=== PATIENT | female | born 1985 | race Caucasian/White ===

== ENCOUNTER 2018-07-09 15:41 | Emergency (ER) | payer SELFPAY ==
[2018-07-09] MEDS ORDERED: NA CHLORIDE 0.9% 1,000 ML ONE (17:18)
[2018-07-09] MEDS ORDERED: ONDANSETRON 4 MG/2 ML VIAL ONE (17:18)
--- NOTE | 2018-07-09 17:48 | RAD REPORT ---
EXAM DESCRIPTION: US - Abdomen Exam Limited - 07/09/2018 5:28 pm CLINICAL HISTORY: Right upper quadrant abdominal pain Preliminary findings provided at the time of the study. COMPARISON: CT study May 24, 2014 FINDINGS: No gallstones, sludge or other abnormalities within the gallbladder lumen. There is no wal l thickening or pericholecystic fluid. No common duct stone or biliary tree dilatation identified. IMPRESSION: Normal gallbladder and biliary tree ultrasound.
[2018-07-09] MEDS ORDERED: KETOROLAC 30 MG/ML INJ ONE (17:50)
[2018-07-09 18:03] LABS: Albumin 3.7 g/dL (3.4-5.0); Bilirubin Direct 0.1 mg/dL (0-0.2); Bilirubin Total 0.3 mg/dL (0.2-1.0); Potassium 3.8 mmol/L (3.5-5.1); Protein, Total 7.9 g/dL (6.4-8.2)
[2018-07-09 18:18] LABS: Urine Blood TRACE (NEG); Urine Glucose NEGATIVE (NEG); Urine Protein TRACE (NEG); Urine Specific Gravity >1.030 (1.005-1.030); Urine pH 6.5 (5.0-7.0)
[2018-07-09 18:22] LABS: Absolute Lymphocytes (CBC) 1.4 K/uL (0.7-4.9); Absolute Monocytes 0.6 K/uL (0.1-1.3); Absolute Neutrophil 8.3 K/uL (1.8-8.0); Basophils % 0.4 % (0-1.3); Hematocrit 40.9 % (36.0-45.0); Lymphocytes % 13.3 % (15.3-44.8); MCH 31.9 pg (27.0-35.0); MCV 90.7 fL (80-100); MPV 9.5 fL (7.6-11.3); Monocytes % 5.5 % (3.3-12.3)
--- NOTE | 2018-07-09 20:09 | RAD REPORT ---
EXAM DESCRIPTION: CT - Abdomen Pelvis W Contrast - 07/09/2018 7:39 pm CLINICAL HISTORY: Abdominal pain. Right upper quadrant pain since last night COMPARISON: None. TECHNIQUE: Computed axial tomography of the abdomen and pelvis was obtained. 100 cc Isovue-300 is ad ministered intravenously. Oral contrast was given. All CT scans are performed using dose optimization technique as appropriate and may include automated exposure control or mA/KV adjustment according to patient size. FINDINGS: The liver, spleen, pancreas, adrenals and kidneys appear unremarkable. The appendix is normal caliber. There is no evidence of diverticulitis An adnexal mass is not seen . A Nuvaring is in place. IMPRESSION: Unremarkable exam
[2018-07-09] MEDS ORDERED: levoFLOXacin 750 MG TAB ONE (20:25)
[2018-07-09 21:00] LABS: Urine Bacteria <20 /HPF (<20); Urine RBC NONE SEEN /HPF (NONE SEEN)
[2018-07-09 21:01] LABS: Urine Culture Reflex Order REFLEXED
--- NOTE | 2018-07-09 21:10 | ER ---
Nurse's Notes [facility] Name: Ale Mir Age: 33 yrs Sex: Female : 1985 Arrival Date: 07/09/2018 Time: 15:44 Bed 25 Private MD: Diagnosis: Unspecified abdominal pain Presentation: 07/09 15:46 Presenting complaint: Patient states: i am having right upper quadrant stomach pain tw2 since last night, denies N/v/D. Transition of care: patient was not received from another setting of care. Onset of symptoms was July 09, 2018. Risk Assessment: Do you want to hurt yourself or someone else? Patient reports no desire to harm self or others. Initial Sepsis Screen: Does the patient meet any 2 criteria? No. Patient's initial sepsis screen is negative. Does the patient have a suspected source of infection? No. Patient's initial sepsis screen is negative. Care prior to arrival: None. 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 - Social history:: Smoking status: Patient/guardian denies using tobacco. - Ebola Screening: : Patient denies travel to an Ebola-affected area in the 21 days before illness onset. Screenin:55 Abuse screen: Denies threats or abuse. Denies injuries from another. Nutritional aj1 screening: No deficits noted. Tuberculosis screening: No symptoms or risk factors identified. 21:30 Fall Risk None identified. aj1 Assessment: 16:51 General: Appears in no apparent distress. comfortable, Behavior is calm, cooperative, aj1 appropriate for age. Pain: Complains of pain in right upper quadrant and right lower quadrant Pain currently is 8 out of 10 on a pain scale. Neuro: Level of Consciousness is awake, alert, obeys commands. Cardiovascular: Patient's skin is warm and dry. Respiratory: Airway is patent Respiratory effort is even, unlabored, Respiratory pattern is regular, symmetrical. GI: Abdomen is flat, non-distended, Bowel sounds present X 4 quads. Abd is soft X 4 quads Abdomen is tender to palpation in right upper quadrant and right lower quadrant Reports nausea, Patient currently denies diarrhea, vomiting. : No signs and/or symptoms were reported regarding the genitourinary system. EENT: No signs and/or symptoms were reported regarding the EENT system. Derm: No signs and/or symptoms reported regarding the dermatologic system. Skin is pink, warm \T\ dry. normal. Musculoskeletal: No signs and/or symptoms reported regarding the musculoskeletal system. Circulation, motion, and sensation intact. 17:37 Reassessment: Patient appears in no apparent distress at this time. No changes from aj1 previously documented assessment. Patient and/or family updated on plan of care and expected duration. Pain level reassessed. Patient is alert, oriented x 3, equal unlabored respirations, skin warm/dry/pink. Patient states that the pain is making her nauseated. Patient vomited when she attempted to drink contrast because of the pain. Notified MELITON Myles. 17:51 Reassessment: Notified CT that patient has finished her contrast. aj1 18:40 Reassessment: Patient appears in no apparent distress at this time. No changes from aj1 previously documented assessment. Patient and/or family updated on plan of care and expected duration. Pain level reassessed. Patient is alert, oriented x 3, equal unlabored respirations, skin warm/dry/pink. 19:40 Reassessment: Patient appears in no apparent distress at this time. No changes from aj1 previously documented assessment. Patient and/or family updated on plan of care and expected duration. Pain level reassessed. Patient is alert, oriented x 3, equal unlabored respirations, skin warm/dry/pink. 20:31 Reassessment: Patient appears in no apparent distress at this time. No changes from aj1 previously documented assessment. Patient and/or family updated on plan of care and expected duration. Pain level reassessed. Patient is alert, oriented x 3, equal unlabored respirations, skin warm/dry/pink. 21:28 Reassessment: Patient appears in no apparent distress at this time. No changes from aj1 previously documented assessment. Patient and/or family updated on plan of care and expected duration. Pain level reassessed. Patient is alert, oriented x 3, equal unlabored respirations, skin warm/dry/pink. Vital Signs: 15:47 BP 144 / 91; Pulse 89; Resp 17; Temp 97.5(O); Pulse Ox 100% on R/A; Pain 8/10; tw2 16:51 BP 134 / 89; Pulse 79; Resp 16; Pulse Ox 100% on R/A; aj1 17:40 BP 127 / 88; Pulse 74; Resp 18; Pulse Ox 100% ; aj1 18:45 BP 125 / 78; Pulse 75; Resp 18; Pulse Ox 100% ; aj1 19:45 BP 131 / 83; Pulse 77; Resp 18; Pulse Ox 100% ; aj1 20:33 BP 121 / 81; Pulse 18; Resp 16; Pulse Ox 100% on R/A; aj1 21:29 BP 116 / 72; Pulse 75; Resp 18; Pulse Ox 99% on R/A; aj1 ED Course: 15:44 Patient arrived in ED. sb2 15:46 Triage completed. tw2 15:47 Arm band placed on. tw2 16:41 Nadeem Valencia PA is PHCP. cp 16:42 Bryn Hunter MD is Attending Physician. cp 16:44 Catrina Briceño RN is Primary Nurse. aj1 16:55 Patient has correct armband on for positive identification. Bed in low position. Call aj1 light in reach. Side rails up X 1. 16:55 No provider procedures requiring assistance completed. aj1 17:37 Initial lab(s) drawn, by me, sent to lab. Inserted saline lock: 20 gauge in left aj1 forearm, using aseptic technique. Blood collected. 19:38 Patient moved to [place] via wheelchair. nj 19:38 CT completed. Patient tolerated procedure well. Patient moved back from [place]. nj 21:09 Adam Lind MD is Referral Physician. cp 21:30 IV discontinued, intact, bleeding controlled, No redness/swelling at site. Pressure aj1 dressing applied. Administered Medications: 17:36 Drug: NS 0.9% 1000 ml Route: IV; Rate: 1 bolus; Site: left forearm; aj1 18:30 Follow up: IV Status: Completed infusion; IV Intake: 1000ml aj1 17:36 Drug: Zofran 4 mg Route: IVP; Site: left forearm; aj1 18:00 Follow up: Response: No adverse reaction aj1 17:43 Drug: TORadol 30 mg Route: IVP; Site: left antecubital; aj1 18:00 Follow up: Response: No adverse reaction aj1 20:30 Drug: LevaQUIN 750 mg Route: PO; aj1 21:28 Follow up: Response: No adverse reaction aj1 21:27 Drug: GI Cocktail without - (Maalox Suspension 30 ml, Lidocaine Liquid 2 % 15 aj1 ml) Route: PO; 21:28 Follow up: Response: No adverse reaction aj1 Intake: 18:30 IV: 1000ml; Total: 1000ml. aj1 Outcome: 21:10 Discharge ordered by . elysia 21:30 Discharged to home ambulatory. aj1 21:30 Condition: good 21:30 Discharge instructions given to patient, Instructed on discharge instructions, follow up and referral plans. medication usage, Demonstrated understanding of instructions, follow-up care, medications, Prescriptions given X 3. 21:31 Patient left the ED. aj1 Signatures: Catrina Briceño, RN RN aj1 Nadeem Valencia PA PA cp Wise, Tara, RN RN tw2 Octavio Weinstein Sheri sb2
--- NOTE | 2018-07-09 21:11 | EDPHYS ---
Physician Documentation [facility] Name: Ale Mir Age: 33 yrs Sex: Female : 1985 Arrival Date: 07/09/2018 Time: 15:44 Bed 25 Private MD: ED Physician Bryn Hunter HPI: 07/09 17:05 This 33 yrs old Female presents to ER via Ambulatory with complaints of cp Abdominal Pain. 17:05 The patient presents with abdominal pain in the right upper quadrant, right lower cp quadrant. Onset: The symptoms/episode began/occurred this morning, at 01:00. The symptoms radiate to right back. Associated signs and symptoms: Pertinent positives: nausea, cough, Pertinent negatives: constipation, diarrhea, dysuria, fever, vomiting. 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 - Social history:: Smoking status: Patient/guardian denies using tobacco. - Ebola Screening: : Patient denies travel to an Ebola-affected area in the 21 days before illness onset. ROS: 17:10 Constitutional: Negative for body aches, chills, fever, poor PO intake. cp 17:10 Eyes: Negative for injury, pain, redness, and discharge. cp 17:10 ENT: Negative for drainage from ear(s), ear pain, sore throat, difficulty swallowing, difficulty handling secretions. 17:10 Cardiovascular: Negative for chest pain, palpitations. 17:10 Respiratory: Negative for cough, shortness of breath, wheezing. 17:10 Abdomen/GI: Positive for abdominal pain, nausea, of the right upper quadrant, Negative for vomiting, diarrhea, constipation, black/tarry stool, rectal bleeding. 17:10 Back: Positive for radiated pain, of the right mid back. 17:10 : Negative for urinary symptoms. 17:10 Skin: Negative for cellulitis, rash. 17:10 All other systems are negative. Exam: 17:15 Constitutional: The patient appears in no acute distress, alert, awake, non-toxic, well cp developed, well nourished. 17:15 Head/Face: Normocephalic, atraumatic. Eyes: Pupils equal round and reactive to light, cp extra-ocular motions intact. Lids and lashes normal. Conjunctiva and sclera are non-icteric and not injected. Cornea within normal limits. Periorbital areas with no swelling, redness, or edema. ENT: Nares patent. No nasal discharge, no septal abnormalities noted. Tympanic membranes are normal and external auditory canals are clear. Oropharynx with no redness, swelling, or masses, exudates, or evidence of obstruction, uvula midline. Mucous membranes moist. Chest/axilla: Normal chest wall appearance and motion. Nontender with no deformity. No lesions are appreciated. 17:15 Cardiovascular: Rate: normal, Rhythm: regular, Edema: is not appreciated, JVD: is not appreciated. 17:15 Respiratory: the patient does not display signs of respiratory distress, Respirations: normal, no use of accessory muscles, no retractions, no splinting, no tachypnea, labored breathing, is not present, Breath sounds: are clear throughout, no decreased breath sounds, no stridor, no wheezing. 17:15 Abdomen/GI: Inspection: abdomen appears normal, Bowel sounds: active, all quadrants, Palpation: soft, in all quadrants, moderate abdominal tenderness, in the right upper quadrant and right lower quadrant, rebound tenderness, is not appreciated, involuntary guarding, is not appreciated. 17:15 Back: pain, that is moderate, of the right mid back, ROM is normal. 17:15 Skin: cellulitis, is not appreciated, no rash present. Vital Signs: 15:47 BP 144 / 91; Pulse 89; Resp 17; Temp 97.5(O); Pulse Ox 100% on R/A; Pain 8/10; tw2 16:51 BP 134 / 89; Pulse 79; Resp 16; Pulse Ox 100% on R/A; aj1 17:40 BP 127 / 88; Pulse 74; Resp 18; Pulse Ox 100% ; aj1 18:45 BP 125 / 78; Pulse 75; Resp 18; Pulse Ox 100% ; aj1 19:45 BP 131 / 83; Pulse 77; Resp 18; Pulse Ox 100% ; aj1 20:33 BP 121 / 81; Pulse 18; Resp 16; Pulse Ox 100% on R/A; aj1 21:29 BP 116 / 72; Pulse 75; Resp 18; Pulse Ox 99% on R/A; aj1 MDM: 16:42 Patient medically screened. cp 17:30 Differential diagnosis: appendicitis, cholecystitis, Cholelithiasis, gastritis, cp pancreatitis, Pyelonephritis, Ureterolithiasis, urinary tract infection. 21:09 Data reviewed: vital signs, nurses notes, lab test result(s), radiologic studies, CT cp scan, and as a result, I will discharge patient. 21:09 Counseling: I had a detailed discussion with the patient and/or guardian regarding: the cp historical points, exam findings, and any diagnostic results supporting the discharge/admit diagnosis, lab results, radiology results, to return to the emergency department if symptoms worsen or persist or if there are any questions or concerns that arise at home. Response to treatment: the patient's symptoms have markedly improved after treatment. Special discussion: Based on the patient's Hx, exam, and Dx evaluation, there is no indication for emergent surgery or inpatient Tx. It is understood by the patient/guardian that if the Sx's persist or worsen they need to return immediately for re-evaluation. 07/09 16:56 Order name: Basic Metabolic Panel 07/09 16:56 Order name: CBC with Diff 07/09 16:56 Order name: Creatinine for Radiology 07/09 16:56 Order name: Hepatic Function 07/09 16:56 Order name: Lipase 07/09 17:45 Order name: Urine Dipstick--Ancillary (enter results) 07/09 17:45 Order name: Urine --Ancillary (enter results) 07/09 18:04 Order name: Basic Metabolic Panel; Complete Time: 19:56 EDMS 07/09 18:04 Order name: Liver (Hepatic) Function; Complete Time: 19:56 EDMS 07/09 18:04 Order name: Lipase; Complete Time: 19:56 EDMS 07/09 18:07 Order name: Creatinine (Radiology Only); Complete Time: 19:56 EDMS 07/09 18:19 Order name: Urine --Ancillary; Complete Time: 19:56 EDMS 07/09 18:19 Order name: Urine Dipstick-Ancillary; Complete Time: 19:56 EDMS 07/09 20:37 Interpretation: Normal except: UBLD TRACE. 07/09 18:36 Order name: CBC with Automated Diff; Complete Time: 19:56 EDMS 07/09 16:56 Order name: IV Saline Lock; Complete Time: 17:36 07/09 16:56 Order name: Labs collected and sent; Complete Time: 17:36 07/09 16:56 Order name: Urine Dipstick-Ancillary (obtain specimen); Complete Time: 17:22 07/09 16:56 Order name: Urine Test (obtain specimen); Complete Time: 17:22 07/09 17:00 Order name: CT Abd/Pelvis - W/Contrast: give oral contrast 07/09 17:06 Order name: US Abdomen Limited: RUQ/epigastric pain 07/09 17:06 Order name: NPO; Complete Time: 17:12 07/09 17:49 Order name: US; Complete Time: 17:59 EDMS 07/09 17:59 Interpretation: Report reviewed. 07/09 20:10 Order name: CT; Complete Time: 20:33 EDMS 07/09 20:34 Interpretation: Report reviewed. 07/09 20:41 Order name: Urine Microscopic Only 07/09 21:02 Order name: Urine Microscopic Only; Complete Time: 21:06 EDMS Administered Medications: 17:36 Drug: NS 0.9% 1000 ml Route: IV; Rate: 1 bolus; Site: left forearm; aj1 18:30 Follow up: IV Status: Completed infusion; IV Intake: 1000ml aj1 17:36 Drug: Zofran 4 mg Route: IVP; Site: left forearm; aj1 18:00 Follow up: Response: No adverse reaction aj1 17:43 Drug: TORadol 30 mg Route: IVP; Site: left antecubital; aj1 18:00 Follow up: Response: No adverse reaction aj1 20:30 Drug: LevaQUIN 750 mg Route: PO; aj1 21:28 Follow up: Response: No adverse reaction aj1 21:27 Drug: GI Cocktail without - (Maalox Suspension 30 ml, Lidocaine Liquid 2 % 15 aj1 ml) Route: PO; 21:28 Follow up: Response: No adverse reaction aj1 Disposition: 07/10 07:45 Co-signature as Attending Physician, Bryn Hunter MD. rn Disposition: 07/09/18 21:10 Discharged to Home. Impression: Unspecified abdominal pain. - Condition is Stable. - Discharge Instructions: Abdominal Pain, Adult. - Prescriptions for Bentyl 20 mg Oral Tablet - take 2 tablet by ORAL route every 6 hours As needed; 40 tablet. Protonix 40 mg Oral Tablet - take 1 tablet by ORAL route once daily; 30 tablet. Zofran 4 mg Oral Tablet - take 1 tablet by ORAL route every 12 hours As needed; 20 tablet. - Medication Reconciliation Form, Thank You Letter, Antibiotic Education, Prescription Opioid Use form. - Follow up: Adam Lind MD; When: 2 - 3 days; Reason: Recheck today's complaints. - Problem is new. - Symptoms have improved. Signatures: Dispatcher [employer] EDMS Catrina Briceño RN RN aj1 Bryn Hunter MD MD rn Page, Corey, PA PA cp Wise, Tara RN RN tw2 Corrections: (The following items were deleted from the chart) 07/09 21:31 21:10 07/09/2018 21:10 Discharged to Home. Impression: Unspecified abdominal pain. aj1 Condition is Stable. Forms are Medication Reconciliation Form, Thank You Letter, Antibiotic Education, Prescription Opioid Use. Follow up: Adam Lind; When: 2 - 3 days; Reason: Recheck today's complaints. Problem is new. Symptoms have improved. cp
[2018-07-09] MEDS ORDERED: LIDOCAINE VISCOUS 2% SOLN 15 ML UDC ONE (21:21)
[2018-07-09] MEDS ORDERED: MAGNE/ALUM HYDROXD 30 ML UCUP ONE (21:21)
[2018-07-09 22:08] VITALS: TEMP 97.5
[2018-07-09 22:17] VITALS: BP 116/72; O2SAT 99
== END 2018-07-09 21:31 | disposition home or self-care (01) ==
LOC: ER 15:41
DX: R10.10 Upper abdominal pain, unspecified (principal)
CPT/HCPCS: 36415; 74177; 76705; 80048; 80076; 81003; 81015; 81025; 83690; 85025; 87086; 87088; J2405; J7030; Q9967

== ENCOUNTER 2018-07-10 04:05 | Emergency (ER) | payer SELFPAY ==
[2018-07-10] MEDS ORDERED: KETOROLAC 30 MG/ML INJ ONE (05:17)
--- NOTE | 2018-07-10 06:05 | ER ---
Nurse's Notes [facility] Name: Ale Mir Age: 33 yrs Sex: Female : 1985 Arrival Date: 07/10/2018 Time: 04:06 Bed 13 Private MD: Diagnosis: Abdominal and pelvic pain Presentation: 07/10 04:27 Presenting complaint: Patient states: I was here earlier in the afternoon for abdominal jb4 pain, I had a CT done and was sent home. Sat at home in excruciating pain, so I came back because my abdominal pain got worse. Transition of care: patient was not received from another setting of care. Onset of symptoms was July 09, 2018. Risk Assessment: Do you want to hurt yourself or someone else? Patient reports no desire to harm self or others. Initial Sepsis Screen: Does the patient meet any 2 criteria? No. Patient's initial sepsis screen is negative. Does the patient have a suspected source of infection? No. Patient's initial sepsis screen is negative. Care prior to arrival: None. 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 - Social history:: Smoking status: Patient/guardian denies using tobacco, Patient uses alcohol, occasionally. - Ebola Screening: : No symptoms or risks identified at this time. Screenin:45 Abuse screen: Denies threats or abuse. Nutritional screening: No deficits noted. jb4 Tuberculosis screening: No symptoms or risk factors identified. Fall Risk None identified. Assessment: 04:45 General: Appears in no apparent distress. comfortable, Behavior is calm, cooperative, jb4 appropriate for age. Pain: Complains of pain in abdomen Pain does not radiate. Pain currently is 5 out of 10 on a pain scale. Neuro: Level of Consciousness is awake, alert, obeys commands, Oriented to person, place, time, situation. Cardiovascular: Patient's skin is warm and dry. Respiratory: Airway is patent Respiratory effort is even, unlabored, Respiratory pattern is regular, symmetrical. GI: Abdomen is flat, non-distended, Bowel sounds present X 4 quads. Abd is soft X 4 quads Abd is non tender in left upper quadrant, right lower quadrant and left lower quadrant Abdomen is tender to palpation in right upper quadrant Reports upper abdominal pain. : No signs and/or symptoms were reported regarding the genitourinary system. EENT: No signs and/or symptoms were reported regarding the EENT system. Derm: Skin is intact, Skin is pink, warm \T\ dry. Musculoskeletal: Circulation, motion, and sensation intact. 05:40 Reassessment: Patient appears in no apparent distress at this time. Patient and/or jb4 family updated on plan of care and expected duration. Pain level reassessed. Patient is alert, oriented x 3, equal unlabored respirations, skin warm/dry/pink. Patient states feeling better. Vital Signs: 04:31 BP 129 / 74; Pulse 80; Resp 16; Temp 99.0(O); Pulse Ox 99% on R/A; Weight 79.38 kg (R); jb4 Height 5 ft. 8 in. (172.72 cm) (R); Pain 5/10; 05:30 BP 124 / 79; Pulse 87; Resp 16; Pulse Ox 97% on R/A; jb4 04:31 Body Mass Index 26.61 (79.38 kg, 172.72 cm) jb4 ED Course: 04:06 Patient arrived in ED. es 04:14 Michael Fajardo MD is Attending Physician. gs 04:27 Juice Maher RN is Primary Nurse. jb4 04:29 Triage completed. jb4 04:31 Arm band placed on left wrist. jb4 04:31 Patient has correct armband on for positive identification. Bed in low position. Call jb4 light in reach. Side rails up X 1. Pulse ox on. NIBP on. 06:04 Alexa Olivera MD is Referral Physician. gs 06:24 No provider procedures requiring assistance completed. Patient did not have IV access jb4 during this emergency room visit. Administered Medications: 05:18 Drug: TORadol 30 mg Route: IM; Site: right gluteus; jb4 05:39 Follow up: Response: No adverse reaction; Pain is decreased jb4 Outcome: 06:04 Discharge ordered by . jagdish 06:24 Discharged to home ambulatory. jb4 06:24 Condition: stable 06:24 Discharge instructions given to patient, Instructed on discharge instructions, follow up and referral plans. medication usage, Demonstrated understanding of instructions, follow-up care, medications, Prescriptions given X 1. 06:25 Patient left the ED. jb4 Signatures: Divina Brunner James, RN RN jb4 Michael Fajardo MD MD gs Corrections: (The following items were deleted from the chart) 05:40 04:45 GI: Abdomen is flat, non-distended, Reports upper abdominal pain, jb4 jb4
--- NOTE | 2018-07-10 06:05 | EDPHYS ---
Physician Documentation [facility] Name: Ale Mir Age: 33 yrs Sex: Female : 1985 Arrival Date: 07/10/2018 Time: 04:06 Bed 13 Private MD: ED Physician Michael Fajardo HPI: 07/10 06:09 This 33 yrs old Female presents to ER via Ambulatory with complaints of RT gs UPPER PAIN. 06:09 The patient presents with abdominal pain. Onset: The symptoms/episode began/occurred gs yesterday. Associated signs and symptoms: Pertinent negatives: blood in stools, constipation, fever, vomiting. The symptoms are described as crampy, intermittent. Modifying factors: The symptoms are alleviated by nothing, the symptoms are aggravated by nothing. Severity of pain: At its worst the pain was moderate in the emergency department the pain has resolved. The patient has experienced similar episodes in the past, several times. The patient has been recently seen at the [facility] Emergency Department, yesterday, for similar complaints. 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 - Social history:: Smoking status: Patient/guardian denies using tobacco, Patient uses alcohol, occasionally. - Ebola Screening: : No symptoms or risks identified at this time. ROS: 06:09 All other systems are negative. gs Exam: 06:09 Head/Face: Normocephalic, atraumatic. Eyes: Pupils equal round and reactive to light, gs extra-ocular motions intact. Lids and lashes normal. Conjunctiva and sclera are non-icteric and not injected. Cornea within normal limits. Periorbital areas with no swelling, redness, or edema. ENT: Nares patent. No nasal discharge, no septal abnormalities noted. Tympanic membranes are normal and external auditory canals are clear. Oropharynx with no redness, swelling, or masses, exudates, or evidence of obstruction, uvula midline. Mucous membranes moist. Neck: Trachea midline, no thyromegaly or masses palpated, and no cervical lymphadenopathy. Supple, full range of motion without nuchal rigidity, or vertebral point tenderness. No Meningismus. Chest/axilla: Normal chest wall appearance and motion. Nontender with no deformity. No lesions are appreciated. Cardiovascular: Regular rate and rhythm with a normal S1 and S2. No gallops, murmurs, or rubs. Normal PMI, no JVD. No pulse deficits. Respiratory: Lungs have equal breath sounds bilaterally, clear to auscultation and percussion. No rales, rhonchi or wheezes noted. No increased work of breathing, no retractions or nasal flaring. Abdomen/GI: Soft, non-tender, with normal bowel sounds. No distension or tympany. No guarding or rebound. No evidence of tenderness throughout. Back: No spinal tenderness. No costovertebral tenderness. Full range of motion. Skin: Warm, dry with normal turgor. Normal color with no rashes, no lesions, and no evidence of cellulitis. MS/ Extremity: Pulses equal, no cyanosis. Neurovascular intact. Full, normal range of motion. Neuro: Awake and alert, GCS 15, oriented to person, place, time, and situation. Cranial nerves II-XII grossly intact. Motor strength 5/5 in all extremities. Sensory grossly intact. Cerebellar exam normal. Normal gait. 06:09 Constitutional: The patient appears alert, awake. Vital Signs: 04:31 BP 129 / 74; Pulse 80; Resp 16; Temp 99.0(O); Pulse Ox 99% on R/A; Weight 79.38 kg (R); jb4 Height 5 ft. 8 in. (172.72 cm) (R); Pain 5/10; 05:30 BP 124 / 79; Pulse 87; Resp 16; Pulse Ox 97% on R/A; jb4 04:31 Body Mass Index 26.61 (79.38 kg, 172.72 cm) jb4 MDM: 04:32 Patient medically screened. 06:09 Differential diagnosis: Endometriosis, non-specific abd pain. Data reviewed: vital gs signs, nurses notes. Response to treatment: the patient's symptoms have markedly improved after treatment, the patient's symptoms have resolved after treatment, and as a result, I will discharge patient. Physician consultation: Alexa Olivera MD and will see patient in ED. Administered Medications: 05:18 Drug: TORadol 30 mg Route: IM; Site: right gluteus; jb4 05:39 Follow up: Response: No adverse reaction; Pain is decreased jb4 Disposition: 07/10/18 06:04 Discharged to Home. Impression: Abdominal and pelvic pain. - Condition is Stable. - Discharge Instructions: Endometriosis, Abdominal Pain, Adult, [id number]. - Prescriptions for Tramadol 50 mg Oral Tablet - take 1 tablet by ORAL route every 8 hours as needed; 10 tablet. - Medication Reconciliation Form, Thank You Letter, Antibiotic Education, Prescription Opioid Use form. - Follow up: Alexa Olivera MD; When: 2 - 3 days; Reason: Re-evaluation by your physician. Signatures: Juice Maher RN RN jb4 Michael Fajardo MD MD gs Corrections: (The following items were deleted from the chart) 06:25 06:04 07/10/2018 06:04 Discharged to Home. Impression: Abdominal and pelvic pain. jb4 Condition is Stable. Forms are Medication Reconciliation Form, Thank You Letter, Antibiotic Education, Prescription Opioid Use. Follow up: Alexa Olivera; When: 2 - 3 days; Reason: Re-evaluation by your physician. gs
[2018-07-10 06:55] VITALS: TEMP 99
[2018-07-10 06:56] VITALS: BP 124/79; O2SAT 97
== END 2018-07-10 06:25 | disposition home or self-care (01) ==
LOC: ER 04:05
DX: R10.2 Pelvic and perineal pain (principal)
CPT/HCPCS: 96372; 99283

== ENCOUNTER 2019-07-14 08:31 | Emergency (ER) | payer SELFPAY ==
[2019-07-14] MEDS ORDERED: FAMOTIDINE 20 MG TAB ONE (08:57)
[2019-07-14] MEDS ORDERED: predniSONE 20 MG TAB ONE (08:57)
--- NOTE | 2019-07-14 09:29 | ER ---
Nurse's Notes [facility] Name: Ale Mir Age: 34 yrs Sex: Female : 1985 Arrival Date: 07/14/2019 Time: 08:33 Bed 5 Private MD: Diagnosis: Allergic contact dermatitis Presentation: 07/14 08:47 Presenting complaint: Patient states: itchy rash started a few days ago and today sv started with a sore throat. Transition of care: patient was not received from another setting of care. Onset of symptoms was July 2019. Risk Assessment: Do you want to hurt yourself or someone else? Patient reports no desire to harm self or others. Initial Sepsis Screen: Does the patient meet any 2 criteria? No. Patient's initial sepsis screen is negative. Does the patient have a suspected source of infection? No. Patient's initial sepsis screen is negative. Care prior to arrival: Medication(s) given: benadryl. 08:47 Method Of Arrival: Ambulatory sv 08:47 Acuity: BHUPENDRA 4 sv Triage Assessment: 08:50 General: Appears in no apparent distress. uncomfortable, well groomed, well developed, sv Behavior is calm, cooperative, appropriate for age. Pain: Denies pain. Neuro: Level of Consciousness is awake, alert, obeys commands, Oriented to person, place, time, situation, Moves all extremities. Full function Gait is steady, Speech is normal. Respiratory: Respiratory effort is even, unlabored, Respiratory pattern is regular, symmetrical. Derm: Skin is pink, warm \T\ dry. Rash noted that is itchy, red, on back, abdomen, right arm and left arm. Historical: - Allergies: 08:54 No Known Allergies; sv - PMHx: 08:54 Kidney stones; sv - PSHx: 08:54 ; Lithotripsy; sv - Immunization history:: Adult Immunizations up to date. - Ebola Screening: : No symptoms or risks identified at this time. - Social history:: Smoking status: Patient/guardian denies using tobacco. Screenin:55 Abuse screen: Denies threats or abuse. Denies injuries from another. Nutritional sv screening: No deficits noted. Tuberculosis screening: No symptoms or risk factors identified. Fall Risk None identified. Assessment: 09:34 Reassessment: Patient appears in no apparent distress at this time. No changes from sv previously documented assessment. Patient and/or family updated on plan of care and expected duration. Pain level reassessed. Patient is alert, oriented x 3, equal unlabored respirations, skin warm/dry/pink. Vital Signs: 08:54 BP 136 / 77; Pulse 92; Resp 16; Temp 97.3; Pulse Ox 100% ; Weight 88.45 kg; Height 5 sv ft. 8 in. (172.72 cm); Pain 0/10; 08:54 Body Mass Index 29.65 (88.45 kg, 172.72 cm) sv ED Course: 08:33 Patient arrived in ED. as 08:37 Bernie Mccarthy FNP-C [facility]. kb 08:37 Bryn Hunter MD is Attending Physician. kb 08:46 Margarita Marshall, RN is Primary Nurse. sv 08:54 Triage completed. sv 08:54 Arm band placed on. sv 08:55 Patient has correct armband on for positive identification. Bed in low position. Call sv light in reach. Door closed. Head of bed elevated. 09:29 Throat Culture Sent. sv 09:34 No provider procedures requiring assistance completed. Patient did not have IV access sv during this emergency room visit. Administered Medications: 09:01 Drug: Pepcid 20 mg Route: PO; sv 09:29 Follow up: Response: No adverse reaction sv 09:01 Drug: predniSONE 40 mg Route: PO; sv 09:29 Follow up: Response: No adverse reaction sv Outcome: 09:28 Discharge ordered by MD. kb 09:34 Discharged to home ambulatory. sv 09:34 Condition: stable 09:34 Discharge instructions given to patient, Instructed on discharge instructions, follow up and referral plans. medication usage, Demonstrated understanding of instructions, follow-up care, medications, Prescriptions given X 2. 09:34 Patient left the ED. sv Signatures: Bernie Mccarthy FNP-C FNP-Margarita Valles, KRISTIN RN Perla Swenson as Corrections: (The following items were deleted from the chart) 08:57 08:54 BP 136 / 77; Pulse 92bpm; Resp 16bpm; Pulse Ox 100%; 88.45 kg; Height 5 ft. 8 sv in.; BMI: 29.6; Pain 0/10; sv
--- NOTE | 2019-07-14 09:29 | EDPHYS ---
Physician Documentation [facility] [place], [place] Name: Ale Mir Age: 34 yrs Sex: Female : 1985 Arrival Date: 07/14/2019 Time: 08:33 Bed 5 Private MD: ED Physician Bryn Hunter HPI: 07/14 09:33 This 34 yrs old Female presents to ER via Ambulatory with complaints of Rash. kb 09:33 The patient's rash thought to be caused by an unknown cause. The rash is located on the kb left leg and right leg and left arm and right arm and abdomen and back. The rash can be described as macular, papular. Onset: The symptoms/episode began/occurred 3 day(s) ago. Associated signs and symptoms: Pertinent positives: itching, Pertinent negatives: burning sensation, difficulty breathing, fever, Pain swelling of lips, swelling of throat, swelling of tongue, vomiting, wheezing. Severity of symptoms: At their worst the symptoms were moderate in the emergency department the symptoms are unchanged. Treatment given at home: Benadryl. The patient has not experienced similar symptoms in the past. The patient has not recently seen a physician. Historical: - Allergies: 08:54 No Known Allergies; sv - PMHx: 08:54 Kidney stones; sv - PSHx: 08:54 ; Lithotripsy; sv - Immunization history:: Adult Immunizations up to date. - Ebola Screening: : No symptoms or risks identified at this time. - Social history:: Smoking status: Patient/guardian denies using tobacco. ROS: 09:32 Constitutional: Negative for fever, chills, and weight loss, ENT: Negative for injury, kb pain, and discharge, Neck: Negative for injury, pain, and swelling, Cardiovascular: Negative for chest pain, palpitations, and edema, Respiratory: Negative for shortness of breath, cough, wheezing, and pleuritic chest pain, Abdomen/GI: Negative for abdominal pain, nausea, vomiting, diarrhea, and constipation, Back: Negative for injury and pain, MS/Extremity: Negative for injury and deformity, Neuro: Negative for headache, weakness, numbness, tingling, and seizure. 09:32 Skin: Positive for rash, of the back, abdomen, right arm, left arm, right leg and left leg. Exam: 09:32 Constitutional: This is a well developed, well nourished patient who is awake, alert, kb and in no acute distress. Head/Face: Normocephalic, atraumatic. Chest/axilla: Normal chest wall appearance and motion. Nontender with no deformity. No lesions are appreciated. Cardiovascular: Regular rate and rhythm with a normal S1 and S2. No gallops, murmurs, or rubs. Normal PMI, no JVD. No pulse deficits. Respiratory: Lungs have equal breath sounds bilaterally, clear to auscultation and percussion. No rales, rhonchi or wheezes noted. No increased work of breathing, no retractions or nasal flaring. Abdomen/GI: Soft, non-tender, with normal bowel sounds. No distension or tympany. No guarding or rebound. No evidence of tenderness throughout. MS/ Extremity: Pulses equal, no cyanosis. Neurovascular intact. Full, normal range of motion. Neuro: Awake and alert, GCS 15, oriented to person, place, time, and situation. Cranial nerves II-XII grossly intact. Motor strength 5/5 in all extremities. Sensory grossly intact. Cerebellar exam normal. Normal gait. 09:32 Skin: consistent with contact dermatitis, on the left leg and right leg and left arm and right arm and abdomen and back. Vital Signs: 08:54 BP 136 / 77; Pulse 92; Resp 16; Temp 97.3; Pulse Ox 100% ; Weight 88.45 kg; Height 5 sv ft. 8 in. (172.72 cm); Pain 0/10; 08:54 Body Mass Index 29.65 (88.45 kg, 172.72 cm) sv MDM: 08:47 Patient medically screened. kb 09:28 Data reviewed: vital signs, nurses notes. Data interpreted: Pulse oximetry: on room air kb is 100 %. Interpretation: normal. Counseling: I had a detailed discussion with the patient and/or guardian regarding: the historical points, exam findings, and any diagnostic results supporting the discharge/admit diagnosis, lab results, the need for outpatient follow up, a family practitioner, to return to the emergency department if symptoms worsen or persist or if there are any questions or concerns that arise at home. 07/14 08:54 Order name: Strep; Complete Time: 09:28 kb 07/14 09:28 Order name: Throat Culture EDMS Administered Medications: 09:01 Drug: Pepcid 20 mg Route: PO; sv 09:29 Follow up: Response: No adverse reaction sv 09:01 Drug: predniSONE 40 mg Route: PO; sv 09:29 Follow up: Response: No adverse reaction sv Disposition: 10:45 Co-signature as Attending Physician, Bryn Hunter MD. rn Disposition: 07/14/19 09:28 Discharged to Home. Impression: Allergic contact dermatitis. - Condition is Stable. - Discharge Instructions: Contact Dermatitis, [id number]. - Prescriptions for Pepcid 20 mg Oral Tablet - take 1 tablet by ORAL route every 12 hours for 5 days; 10 tablet. Prednisone 20 mg Oral Tablet - take 1 tablet by ORAL route once daily for 5 days; 5 tablet. - Medication Reconciliation Form, Thank You Letter, Antibiotic Education, Prescription Opioid Use form. - Follow up: Emergency Department; When: As needed; Reason: Worsening of condition. Follow up: Private Physician; When: 2 - 3 days; Reason: Recheck today's complaints, Continuance of care, Re-evaluation by your physician. Signatures: Dispatcher [employer] Bernie Mccarthy, SOLO MUSICIAN-C SOLO MUSICIAN-Margarita Valles RN RN Bryn Zepeda MD MD garnett mechanic: (The following items were deleted from the chart) 09:33 09:32 Skin: Positive for rash, diffusely, alsia kb 09:34 09:28 07/14/2019 09:28 Discharged to Home. Impression: Allergic contact dermatitis. sv Condition is Stable. Forms are Medication Reconciliation Form, Thank You Letter, Antibiotic Education, Prescription Opioid Use. Follow up: Emergency Department; When: As needed; Reason: Worsening of condition. Follow up: Private Physician; When: 2 - 3 days; Reason: Recheck today's complaints, Continuance of care, Re-evaluation by your physician. kb
[2019-07-14 10:11] VITALS: BP 136/77; TEMP 97.3; O2SAT 100
== END 2019-07-14 09:34 | disposition home or self-care (01) ==
LOC: ER 08:31
DX: L23.9 Allergic contact dermatitis, unspecified cause (principal)
CPT/HCPCS: 87070; 87081; 99283; J7512

== ENCOUNTER 2019-09-10 07:29 | Emergency (ER) | payer OTHER ==
[2019-09-10 08:13] LABS: Basophils % 0.5 % (0-1.3); Hematocrit 37.8 % (36.0-45.0); Lymphocytes % 23.1 % (15.3-44.8); MPV 8.6 fL (7.6-11.3); RBC Red Blood Cell Count 4.23 M/uL (3.86-4.86)
[2019-09-10 08:55] LABS: BUN Blood Urea Nitrogen 7 mg/dL (7-18); Bicarbonate 22 mmol/L (21-32); Glucose Level 92 mg/dL (74-106); HCG, Quantitative 46960 mIU/mL (1-3); Potassium 3.8 mmol/L (3.5-5.1); Sodium Level 139 mmol/L (136-145)
[2019-09-10 09:41] LABS: Urine Blood 3+ (NEG); Urine Glucose NEGATIVE (NEG); Urine Protein 3+ (NEG); Urine Specific Gravity >1.030 (1.005-1.030); Urine pH 6.5 (5.0-7.0)
--- NOTE | 2019-09-10 09:42 | RAD REPORT ---
EXAM DESCRIPTION: US - Transvaginal OB - 09/10/2019 8:39 am CLINICAL HISTORY: with vaginal bleeding COMPARISON: None. FINDINGS: The uterus measures 12 x 7 x 11 centimeters. A normal appearing gestational sac is presen t within the endometrium. Within this is a yolk sac and pole with a crown-rump length 5.4 centi meters. Cardiac activity 164 beats per minute Small subchorionic bleed Right ovary normal in size and echotexture. Left ovary was not seen perhaps secondary to overlying asim wel gas The right and left adnexal unremarkable No significant free fluid is seen. IMPRESSION: Single live intrauterine with an estimated gestational age 11 weeks 6 days ED D 03/25/2020 If a survey is desired it should be performed in about 6-1/2 weeks
--- NOTE | 2019-09-10 10:18 | ER ---
Nurse's Notes [facility] Name: Ale Mir Age: 34 yrs Sex: Female : 1985 Arrival Date: 09/10/2019 Time: 07:32 Bed 14 Private MD: Diagnosis: Threatened Presentation: 09/10 07:38 Presenting complaint: Patient states: i am about 12 weeks and this morning i tw2 went to the bathroom and started urinating before i urinated and i looked down and it was bright red blood, no pain, but yesterday i did have sharp right sided abdominal pain. Transition of care: patient was not received from another setting of care. Onset of symptoms was September 10, 2019. Risk Assessment: Do you want to hurt yourself or someone else? Patient reports no desire to harm self or others. Initial Sepsis Screen: Does the patient meet any 2 criteria? No. Patient's initial sepsis screen is negative. Does the patient have a suspected source of infection? No. Patient's initial sepsis screen is negative. Care prior to arrival: None. 07:38 Method Of Arrival: Ambulatory tw2 07:38 Acuity: BHUPENDRA 3 tw2 Triage Assessment: 07:41 General: Appears in no apparent distress. Behavior is calm, cooperative, appropriate tw2 for age. Pain: Complains of pain in right lower quadrant. : Reports vaginal bleeding that is. 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 - Coronavirus screen:: The patient has NOT traveled to [place], [place], or [place] in the past 14 days. - Social history:: Smoking status: . - Ebola Screening: : Patient denies travel to an Ebola-affected area in the 21 days before illness onset. Screenin:47 Abuse screen: Denies threats or abuse. Nutritional screening: No deficits noted. tw2 Tuberculosis screening: No symptoms or risk factors identified. Fall Risk None identified. Assessment: 07:32 Obstetrical Assessment: Patient reports vaginal bleeding. tw2 07:35 General: Appears in no apparent distress. well groomed, Behavior is calm, cooperative, tw2 appropriate for age, crying, quiet, at times when talking about . Pain: Complains of pain in right lower quadrant. Neuro: Level of Consciousness is awake, alert, obeys commands, Oriented to person, place, time, situation. Cardiovascular: Heart tones S1 S2 Patient's skin is warm and dry. Respiratory: Airway is patent Respiratory effort is even, unlabored, Respiratory pattern is regular, symmetrical, Breath sounds are clear bilaterally. GI: Abdomen is flat, Bowel sounds present X 4 quads. Reports lower abdominal pain, cramping. : Reports vaginal bleeding that is bright red, moderate flow, since this morning. EENT: No signs and/or symptoms were reported regarding the EENT system. Derm: No signs and/or symptoms reported regarding the dermatologic system. Musculoskeletal: Range of motion: intact in all extremities. 08:55 Reassessment: Patient appears in no apparent distress at this time. Patient and/or tw2 family updated on plan of care and expected duration. Pain level reassessed. Patient is alert, oriented x 3, equal unlabored respirations, skin warm/dry/pink. pt is smiling at this time after preliminary results from provider Peter Coats FNP. 10:05 Reassessment: Patient appears in no apparent distress at this time. Patient is alert, ca1 oriented x 3, equal unlabored respirations, skin warm/dry/pink. 10:40 Reassessment: Patient appears in no apparent distress at this time. Patient is alert, ca1 oriented x 3, equal unlabored respirations, skin warm/dry/pink. Vital Signs: 07:42 BP 102 / 64; Pulse 85; Resp 18; Temp 98.1(O); Pulse Ox 100% on R/A; Weight 85.28 kg tw2 (R); Height 5 ft. 8 in. (172.72 cm); Pain 2/10; 08:55 BP 115 / 70; Pulse 64; Resp 17; Pulse Ox 99% on R/A; tw2 10:00 BP 106 / 59; Pulse 80; Resp 14 S; Pulse Ox 99% on R/A; ca1 10:40 BP 108 / 66; Pulse 74; Resp 17 S; Pulse Ox 99% on R/A; ca1 07:42 Body Mass Index 28.59 (85.28 kg, 172.72 cm) tw2 Vitals: 08:47 Heart Tones US ordered. tw2 ED Course: 07:32 Patient arrived in ED. mr 07:33 Pauly Cisse FNP-C [facility]. snw 07:33 Bryn Hunter MD is Attending Physician. snw 07:37 Lisa Calvillo, KRISTIN is Primary Nurse. tw2 07:38 Bed in low position. Call light in reach. Pulse ox on. NIBP on. tw2 07:41 Triage completed. tw2 07:41 Arm band placed on. tw2 07:59 Missed attempt(s): 20 gauge in right antecubital area. Bleeding controlled, band aid tw2 applied, catheter tip intact. Inserted saline lock: 22 gauge in right antecubital area, using aseptic technique. Blood collected. 08:48 No provider procedures requiring assistance completed. tw2 10:03 Report given to KRISTIN Salgado. tw2 10:41 IV discontinued, intact, bleeding controlled, No redness/swelling at site. Pressure ca1 dressing applied. Administered Medications: No medications were administered Outcome: 10:05 Discharge ordered by . snw 10:41 Discharged to home ambulatory. ca1 10:41 Condition: stable 10:41 Discharge instructions given to patient, Instructed on discharge instructions, follow up and referral plans. medication usage, Demonstrated understanding of instructions, follow-up care, medications, Prescriptions given X 1. 10:42 Patient left the ED. ca1 Signatures: Pauly Cisse FNP-C FNP-Frank Rhea Joseph Lisa Calvillo, RN RN tw2 Naomi Kim RN RN ca1
--- NOTE | 2019-09-10 10:19 | EDPHYS ---
Physician Documentation [facility] Name: Ale Mir Age: 34 yrs Sex: Female : 1985 Arrival Date: 09/10/2019 Time: 07:32 Bed 14 Private MD: ED Physician Bryn Hunter HPI: 09/10 07:55 This 34 yrs old Female presents to ER via Ambulatory with complaints of snw Vaginal Bleeding, + Preg <12wks. 07:55 The patient presents with vaginal bleeding that is moderate. Onset: The snw symptoms/episode began/occurred suddenly, just prior to arrival, this morning. Associated signs and symptoms: The patient has no apparent associated signs or symptoms. Severity of symptoms: At their worst the symptoms were moderate. The patient has not experienced similar symptoms in the past. 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 - Coronavirus screen:: The patient has NOT traveled to [place], [place], or [place] in the past 14 days. - Social history:: Smoking status: . - Ebola Screening: : Patient denies travel to an Ebola-affected area in the 21 days before illness onset. ROS: 07:53 Constitutional: Negative for fever, chills, and weight loss, Eyes: Negative for injury, snw pain, redness, and discharge, ENT: Negative for injury, pain, and discharge, Neck: Negative for injury, pain, and swelling, Cardiovascular: Negative for chest pain, palpitations, and edema, Respiratory: Negative for shortness of breath, cough, wheezing, and pleuritic chest pain, Abdomen/GI: Negative for abdominal pain, nausea, vomiting, diarrhea, and constipation, Back: Negative for injury and pain, MS/Extremity: Negative for injury and deformity, Skin: Negative for injury, rash, and discoloration, Neuro: Negative for headache, weakness, numbness, tingling, and seizure, Psych: Negative for depression, anxiety, suicide ideation, homicidal ideation, and hallucinations. 07:53 : Positive for vaginal bleeding, LMP 12, See Dr. Locke in [place]. G3,P2, + right sided cramping yest. This am with urination, significant bleeding. . Exam: 07:53 Constitutional: This is a well developed, well nourished patient who is awake, alert, snw and in no acute distress. Head/Face: Normocephalic, atraumatic. Eyes: Pupils equal round and reactive to light, extra-ocular motions intact. Lids and lashes normal. Conjunctiva and sclera are non-icteric and not injected. Cornea within normal limits. Periorbital areas with no swelling, redness, or edema. ENT: Nares patent. No nasal discharge, no septal abnormalities noted. Tympanic membranes are normal and external auditory canals are clear. Oropharynx with no redness, swelling, or masses, exudates, or evidence of obstruction, uvula midline. Mucous membranes moist. Neck: Trachea midline, no thyromegaly or masses palpated, and no cervical lymphadenopathy. Supple, full range of motion without nuchal rigidity, or vertebral point tenderness. No Meningismus. Chest/axilla: Normal chest wall appearance and motion. Nontender with no deformity. No lesions are appreciated. Cardiovascular: Regular rate and rhythm with a normal S1 and S2. No gallops, murmurs, or rubs. Normal PMI, no JVD. No pulse deficits. Respiratory: Lungs have equal breath sounds bilaterally, clear to auscultation and percussion. No rales, rhonchi or wheezes noted. No increased work of breathing, no retractions or nasal flaring. Abdomen/GI: Soft, non-tender, with normal bowel sounds. No distension or tympany. No guarding or rebound. No evidence of tenderness throughout. Back: No spinal tenderness. No costovertebral tenderness. Full range of motion. Skin: Warm, dry with normal turgor. Normal color with no rashes, no lesions, and no evidence of cellulitis. MS/ Extremity: Pulses equal, no cyanosis. Neurovascular intact. Full, normal range of motion. Neuro: Awake and alert, GCS 15, oriented to person, place, time, and situation. Cranial nerves II-XII grossly intact. Motor strength 5/5 in all extremities. Sensory grossly intact. Cerebellar exam normal. Normal gait. Vital Signs: 07:42 BP 102 / 64; Pulse 85; Resp 18; Temp 98.1(O); Pulse Ox 100% on R/A; Weight 85.28 kg tw2 (R); Height 5 ft. 8 in. (172.72 cm); Pain 2/10; 08:55 BP 115 / 70; Pulse 64; Resp 17; Pulse Ox 99% on R/A; tw2 10:00 BP 106 / 59; Pulse 80; Resp 14 S; Pulse Ox 99% on R/A; ca1 10:40 BP 108 / 66; Pulse 74; Resp 17 S; Pulse Ox 99% on R/A; ca1 07:42 Body Mass Index 28.59 (85.28 kg, 172.72 cm) tw2 MDM: 07:38 Patient medically screened. snw 10:06 Data reviewed: vital signs, nurses notes. Data interpreted: Pulse oximetry: on room air snw is 99 %. Interpretation: normal. Counseling: I had a detailed discussion with the patient and/or guardian regarding: the historical points, exam findings, and any diagnostic results supporting the discharge/admit diagnosis, lab results, radiology results, the need for outpatient follow up, to return to the emergency department if symptoms worsen or persist or if there are any questions or concerns that arise at home. Special discussion: Based on the patient's Hx, exam, and Dx evaluation, there is no indication for emergent surgery or inpatient Tx. It is understood by the patient/guardian that if the Sx's persist or worsen they need to return immediately for re-evaluation. Based on the history and exam findings, there is no indication for further emergent testing or inpatient evaluation. I discussed with the patient/guardian the need to see the OB Gyne specialist for further evaluation of the symptoms. I discussed with the patient/guardian the need to see the primary care provider for further evaluation of the symptoms. 02 07:34 Order name: Quantitative Hcg snw 09/10 07:34 Order name: Abo/rh Typing snw 09/10 07:34 Order name: Basic Metabolic Panel snw 09/10 07:34 Order name: CBC with Diff snw 09/10 08:01 Order name: Urine Dipstick--Ancillary (enter results) em1 09/10 08:01 Order name: Urine --Ancillary (enter results) em1 09/10 07:34 Order name: Urine Test (obtain specimen); Complete Time: 07:57 snw 09/10 07:34 Order name: US Transvaginal Ob snw 09/10 09:37 Order name: CBC with Automated Diff; Complete Time: 09:38 EDMS 09/10 09:39 Order name: Basic Metabolic Panel; Complete Time: 09:43 EDMS 09/10 09:39 Order name: HCG, Quantitative; Complete Time: 09:43 EDMS 09/10 09:45 Order name: ABO/RH typing; Complete Time: 09:47 EDMS 09/10 09:51 Order name: Urine --Ancillary; Complete Time: 09:55 EDMS 09/10 09:51 Order name: Urine Dipstick-Ancillary; Complete Time: 09:55 EDMS 09/10 07:34 Order name: IV Saline Lock; Complete Time: 08:18 snw 09/10 07:34 Order name: Labs collected and sent; Complete Time: 08:18 snw 09/10 07:34 Order name: NPO; Complete Time: 08:46 snw 09/10 07:34 Order name: Urine Dipstick-Ancillary (obtain specimen); Complete Time: 07:57 snw Administered Medications: No medications were administered Disposition: 16:31 Co-signature as Attending Physician, Bryn Hunter MD. rn Disposition: 09/10/19 10:05 Discharged to Home. Impression: Threatened . - Condition is Stable. - Discharge Instructions: Threatened Miscarriage, Vaginal Bleeding During , Second Trimester, Subchorionic Hematoma, Pelvic Rest. - Prescriptions for Vitamin 27- 0.8 mg Oral Tablet - take 1 tablet by ORAL route once daily; 60 tablet. - Medication Reconciliation Form, Thank You Letter, Antibiotic Education, Prescription Opioid Use, Work release form form. - Follow up: Emergency Department; When: As needed; Reason: Worsening of condition. Follow up: Private Physician; When: 1 - 2 days; Reason: Recheck today's complaints, Continuance of care, Re-evaluation by your physician. Signatures: Dispatcher [facility] CenterPauly Matson, CARPENTRY SPECIALIST-C CARPENTRY SPECIALIST-Csnw Bryn Hunter MD MD rn Wise, Tara, RN RN tw2 Naomi Kim RN RN ca1 Corrections: (The following items were deleted from the chart) 10:42 10:05 09/10/2019 10:05 Discharged to Home. Impression: Threatened . Condition ca1 is Stable. Forms are Work release form, Medication Reconciliation Form, Thank You Letter, Antibiotic Education, Prescription Opioid Use. Follow up: Emergency Department; When: As needed; Reason: Worsening of condition. Follow up: Private Physician; When: 1 - 2 days; Reason: Recheck today's complaints, Continuance of care, Re-evaluation by your physician. snw
[2019-09-10 11:16] VITALS: TEMP 98.1
[2019-09-10 11:17] VITALS: O2SAT 99
[2019-09-10 11:20] VITALS: BP 108/66
== END 2019-09-10 10:42 | disposition home or self-care (01) ==
LOC: ER 07:29
DX: O20.0 Threatened abortion (principal); Z3A.12 12 weeks gestation of pregnancy
CPT/HCPCS: 36415; 76817; 80048; 81003; 81025; 84702; 85025; 86900; 86901; 99284

== ENCOUNTER 2020-01-26 05:45 | Emergency (ER) | payer OTHER ==
--- OUTSIDE RECORDS SUMMARY | 2020-01-26 05:47 | XMS REPORT | Summary of Care ---
:1985 Author Organization [facility] Address [address] [place] [id number] Care Team Providers Name Role Phone Pcp, Patient Does Not Have A Primary Care Provider +1-000-00 0-0000 Reason for Visit Reason Comments Exposure 6DAYS AGO Cough Encounter Details Date Type Department Care Team Description 01/19/[address] [facility] Family Lucrecia Ro, WAREHOUSE SPECIALIST [address] [address] Suspected Covid-19 Virus Infection (Prim matheus Dx); Medicine [facility] Pob1, Acute Care Clinic Cough [address] [place] [address] Allergies No Known Allergiesdocumented as of this encounter (statuses as of 01/19/2020) Medications Medication Sig Dispensed Refills Start Date End Date Status 25/iron Take by mouth. 0 Active fum/folic/dha (-1 ORAL) iron Take by mouth. 0 Acti ve bis-gly/FA/C/B12/Ca/succ (IRON-150 ORAL) documented as of this encounter (statuses as of 01/19/2020) Active Problems Estimated Date of Delivery Comments Yes 03/27/2020 No known active problemsdocumented as of this encounter (statuses as of 01/19/2020) Social History Tobacco Use Types Packs/Day Years Used Date Never Smoker Smokeless Tobacco: Never Used Estimated Date of Delivery Comments Yes 03/27/2020 Sex Assigned at Date Recorded Not on file Job Start Date Occupation Industry Not on file Not on file Not on file Travel History Travel Start Travel End No recent travel history available. COVID-19 Exposure Response Date Recorded In the last month, have you been in contact with Yes 01/19/2020 1:39 PM CDT someone who was confirmed or suspected to have Coronavirus / COVID-19? documented as of this encounter Last Filed Vital Signs Vital Sign Reading Time Taken Comments Blood Pressure 116/70 01/19/2020 1:42 PM CDT Pulse 101 01/19/2020 1:42 PM CDT Temperature 37.1 C (98.7 F) 01/19/2020 1:42 PM CDT Respiratory Rate 17 01/19/2020 1:42 PM CDT Oxygen Saturation 99% 01/19/2020 1:42 PM CDT Inhaled Oxygen Concentration - - Weight 93 kg (205 lb) 01/19/2020 1:42 PM CDT Height 172.7 cm (5' 8") 01/19/2020 1:42 PM CDT Body Mass Index 31.17 01/19/2020 1:42 PM CDT documented in this encounter Patient Instructions Patient InstructionsLuz Ro FNP - 01/19/2020 1:40 PM CDT Patient Education Preventing the Spread of Infection: Understanding Isolation Procedures Certain infections can spread from person to person. This is why your friend or family member may beput in a special room. Restrictions may be placed on who can go in and out of that room and what protection must be worn. This is for your protection and your loved ones protection. Read this sheet to learn more. How infection spreads Infection is caused by germs. An infected person carries germs that he or she can give to others. Even a person who doesnt feel sick can still carry and spread germs.Germs can cause infection by traveling through the air. They can also cause infection bydirect contactor on the surface of objects such as a door handle, TV remote control, phone, bed railing, or tabletop. The rules about who can visit your friend or family member, and when they can visit, depend on what kind of infection he orshe has. Precautions help prevent the spread of infection To stop infection from spreading, healthcare workers may do 1 or more of the following: Place an infected person in a private room. Or in a room with others who have exactly the same infection. (This depends on what kind of infection the person has.) Place restrictions on who can enter and exit this room. Wear a mask and eye protection or a face shield, gloves, gown, or other items, and ask you to do the same when you visit. Wear an air filter (respirator) for some infections, and ask you to do the same when you visit. What you can do You may be asked to wear a mask and eye protection or a face shield, gloves, gown, or other itemswhen you visit. Follow any instructions carefully. Practice good hand hygiene. This means washing your hands with soap and clean, warm or cold waterfor at least 20 seconds. Or using a 60% alcohol-based hand steno pool supervisor. This is especially important after you use the bathroom. And before and after touching the person or his or her surroundings. Keep your hands away from your face. Cough or sneezeinto a tissue. Then throw the tissue away and wash your hands. If you don't havea tissue, cough or sneeze into your elbow. Don't use the persons bathroom. Don't visit someone if you feel sick. Don't visit if you have been exposed to an illness such as the flu, chickenpox, or measles. [employer] last reviewed this educational content on 01/03/201919995466-8071 The [employer]. [address] [place] [address], [place] [address]. All rights reserved. This information is not intended as a substitute for professional medical care. Always follow your healthcare professional's instructions. Patient Education Coronavirus Disease 2019 (COVID-19): Prevention The best prevention is to not have contact with the SARS-CoV-2 virus. There is no vaccine yet. Canceling travel and other outings Stay informed about COVID-19 in your area. Follow local instructions about being in public. Be awareof events in your community that may be postponed or canceled, such as school and sporting events. You may be advised not to attend public gatherings. You will be advised to stay at least 6 feet from others as much as possible. This is called "social distancing." You may be advised to stay at home and isolate yourself as much as possible if COVID-19 is in your area. You may hear terms such as "self isolate, "quarantine," stay at home, penitentiary in place, and lockdown. The CDC advises that people should not travel to areas where there are COVID-19 outbreaks right now for any reason that is not urgent. For the most current CDC travel advisories, visit the CDC website at www.cdc.gov/coronavirus/2019- ncov/travelers.Dont go on cruises or do non-essential travel right now. When you are at home Wash your hands often. Use soap and clean, running water for at least 20 seconds. If you don't have access to soap and water, use an alcohol-based hand steno pool supervisor often. Make sure it has at least 60% alcohol. Don't touch your eyes, nose, or mouth unless you have clean hands. Dont kiss someone who is sick. If you need to cough or sneeze, do it into a tissue. Then throw the tissue into the trash. If youdon't have tissues, cough or sneeze into the bend of your elbow. When possible, don't touch "high-touch" shared surfaces such as doorknobs and handles, cabinet handles, and light switches. Clean frequently-touched home surfaces often with disinfectant. This includes desk surfaces, printers, phones, kitchen counters, tables, fridge door handle, bathroom surfaces, and any soiled surface. Closely follow disinfectant label instructions. Go to the CDCs detailed cleaning website at www.[facility].gov/coronavirus/2019-ncov/prepare/cleaning-disinfection.html. Check your home supplies. Consider keeping a 2-week supply of medicines, food, and other needed household items. Make a plan for childcare, work, and ways to stay in touch with others. Know who will help you ifyou get sick. Don't be around people who are sick. There is no evidence right now that animals spread SARS-CoV-2. But it's always a good idea to wash your hands after touching any animals. Don't touch animals that may be sick. Dont share eating or drinking utensils with sick people. If you leave home Stay at least 6 feet away from all people. When possible, don't touch "high-touch" public surfaces such as doorknobs and handles, cabinet handles, and light switches. If you touch these surfaces, try to clean them first with a disinfecting wipe. Or touch them using a tissue or paper towel. Use an alcohol-based hand steno pool supervisor often. Make sure it has at least 60% alcohol. Don't touch your eyes, nose, or mouth unless you have clean hands. If you need to cough or sneeze, do it into a tissue. Then throw the tissue into the trash. If youdon't have tissues, cough or sneeze into the bend of your elbow. Avoid public gatherings. The CDC advises wearing a cloth face mask in public. During a public health emergency, medical face masks may be reserved for healthcare workers. You may need to make a cloth face mask of your own. You can do this using a bandana, T- shirt, or other cloth. The CDC has instructions on how to make a mask. If you are at a work site Stay at least 6 feet away from all people. Don't shake hands with anyone. Dont have in-person meetings. Meet over phone or video. Wash your hands often. Use soap and clean, running water for at least 20 seconds. If you don't have access to soap and water, use an alcohol-based hand steno pool supervisor often. Make sure it has at least 60% alcohol. Don't touch your eyes, nose, or mouth unless you have clean hands. The CDC advises wearing a cloth face mask in public. During a public health emergency, medical face masks may be reserved for healthcare workers. You may need to make a cloth face mask of your own. You can do this using a bandana, T- shirt, or other cloth. The CDC has instructions on how to make a mask. When possible, don't touch "high-touch" public surfaces such as doorknobs and handles, cabinet handles, and light switches. If you touch these surfaces, clean them first with a disinfecting wipe. Ortouch them using a tissue or paper towel. Use office diego one person at a time. Consider not having office coffee or tea, or group foods. Dont have meals in groups. Clean work surfaces often with disinfectant. This includes desk surfaces, photocopier, printer, phones, kitchen counters, fridge door handle, bathroom surfaces, and others. Dont touch other peoples personal work tools, such as phones, keyboards, pens, and other items. Dont touch other peoples eating or drinking utensils. If you need to cough or sneeze, do it into a tissue. Then throw the tissue into the trash. If youdon't have tissues, cough or sneeze into the bend of your elbow. If you feel sick in any way, go home and stay home. If you have been exposed to a person with COVID-19 If you've been exposed within that last 14 days to someone who is suspected of having COVID-19 or has tested positive for it: Call your healthcare provider and follow all instructions. Your activities and where you go likely will be restricted for up to 2 weeks. Check your community's instructions about activity restrictions. You may be directed to stay home, or "self-isolate." Take your temperature every morning and evening for at least 14 days. This is to check for fever.Keep a record of the readings. Watch for symptoms of the virus. Call your provider if you have symptoms. Call your provider first before going to any clinic or hospital. See the CDC's symptom production checker. Stay home if you are sick for any reason. When to call your healthcare provider Call your healthcare provider if think you have COVID-19 symptoms. These can include fever, cough, and trouble breathing. They may also include body aches, sore throat, or diarrhea. Dont go to a healthcare facility before speaking to a healthcare provider. Last modified date: 11/09/2019 [employer] last reviewed this educational content on 11/04/201919994347-5281 The [employer]. [address] [place] [address]. All rights reserved. This information is not intended as a substitute for professional medical care. Always follow your healthcare professional's instructions. documented in this encounter Progress Notes Luz Ro FNP - 01/19/2020 1:40 PM CDT Cc: Chief Complaint Patient presents with Exposure 6DAYS AGO Cough Ale Mir is a 34 year old female. Patient had positive exposure to covid and is here with cough. She is 30 weeks , feels fatigues also headache anemia, unsure if the fatigue to related to her of something else. Cough Cough characteristics: Dry Sputum characteristics: Nondescript Severity: Mild Onset quality: Gradual Duration: 1 week Timing: Intermittent Chronicity: New Smoker: no Context: not weather changes Relieved by: Nothing Worsened by: Nothing Ineffective treatments: None tried Associated symptoms: no chest pain, no fever, no headaches, no myalgias, no shortness of breath and no wheezing Associated symptoms comment: Fatigue, but Allergies Ale has No Known Allergies. Medications Outpatient Medications Prior to Visit Medication Sig Dispense Refill iron bis-gly/FA/C/B12/Ca/succ (IRON-150 ORAL) Take by mouth. 25/iron fum/folic/dha (-1 ORAL) Take by mouth. No facility-administered medications prior to visit. Histories No past medical history on file. No past surgical history on file. Social History Socioeconomic History Marital status: Single Spouse name: Not on file Number of children: Not on file Years of education: Not on file Highest education level: Not on file Occupational History Not on file Social Needs Financial resource strain: Not on file Food insecurity: Worry: Not on file Inability: Not on file Transportation needs: Medical: Not on file Non-medical: Not on file Tobacco Use Smoking status: Never Smoker Smokeless tobacco: Never Used Substance and Sexual Activity Alcohol use: Not on file Drug use: Not on file Sexual activity: Not on file Lifestyle Physical activity: Days per week: Not on file Minutes per session: Not on file Stress: Not on file Relationships Social connections: Talks on phone: Not on file Gets together: Not on file Attends uatsdin service: Not on file Active member of club or organization: Not on file Attends meetings of clubs or organizations: Not on file Relationship status: Not on file Intimate partner violence: Fear of current or ex partner: Not on file Emotionally abused: Not on file Physically abused: Not on file Forced sexual activity: Not on file Other Topics Concern Not on file Social History Narrative Not on file No family history on file. Review of Systems Constitutional: Negative. Negative for fever. Respiratory: Positive for cough. Negative for apnea, choking, chest tightness, shortness of breath and wheezing. Cardiovascular: Negative. Negative for chest pain, palpitations and leg swelling. Gastrointestinal: Negative. Musculoskeletal: Negative for myalgias. Skin: Negative. Neurological: Negative. Negative for headaches. Endocrine: Endocrine negative Vital Signs BP 116/70 | Pulse 101 | Temp 37.1 C (98.7 F) (Oral) | Resp 17 | Ht 5' 8" (1.727 m) | Wt 205lb (93 kg) | SpO2 99% | BMI 31.17 kg/m Physical Exam Constitutional: She is oriented to person, place, and time. She appears well- developed and well-nourished. HENT: Head: Normocephalic. Right Ear: Hearing, tympanic membrane, external ear and ear canal normal. Left Ear: Hearing, tympanic membrane, external ear and ear canal normal. Nose: Nose normal. Right sinus exhibits no maxillary sinus tenderness and no frontal sinus tenderness. Left sinus exhibits no maxillary sinus tenderness and no frontal sinus tenderness. Mouth/Throat: Uvula is midline, oropharynx is clear and moist and mucous membranes are normal. No oropharyngeal exudate, posterior oropharyngeal edema, posterior oropharyngeal erythema or tonsillar abscesses. No tonsillar exudate. Neck: Normal range of motion. Neck supple. Cardiovascular: Normal rate, regular rhythm, normal heart sounds and intact distal pulses. Exam reveals no gallop and no friction rub. No murmur heard. Pulmonary/Chest: Effort normal and breath sounds normal. No respiratory distress. She has no wheezes. She has no rales. She exhibits no tenderness. Abdominal: Soft. Bowel sounds are normal. She exhibits no distension. There is no tenderness. Lymphadenopathy: Head (right side): No submental, no submandibular, no tonsillar, no preauricular and no posterior auricular adenopathy present. Head (left side): No submental, no submandibular, no tonsillar, no preauricular and no posterior auricular adenopathy present. She has no cervical adenopathy. Neurological: She is alert and oriented to person, place, and time. Skin: Skin is warm and dry. Capillary refill takes less than 2 seconds. No rash noted. No erythema. No pallor. Psychiatric: She has a normal mood and affect. Nursing note and vitals reviewed. Assessment/Plan 1. Cough: make take some antihistamine as symptoms are likely her allergies, covid test done to rulethat out.In the meantime, quarantine in place, treat symptoms with OTC meds, Tylenol as needed but no NSAIDs. Stay in quarantine until symptoms subsides, plus 3 days afterwards or until you hear otherwise. Follow up with your PCP as needed, and if with worsening of symptoms, any respiratory distress, go to the ER. Plan of care, desired health behaviors, goals, and medication discussed with patient. Education resources provided and reviewed with AVS. Patient/guardian/family verbalized understanding & agrees to plan of care. This visit did not involve counseling and coordination that comprised more than 50% of the visit time. If applicable, the [facility] database was accessed to review any controlled substance prescription claims data. The [employer] prescription claims data in [place] was reviewed to assess patient compliance with the medication treatment plan. atrina Terry RN - 01/19/2020 1:40 PM CDT Ale Mir is a 34 year old female in office for the following: Chief Complaint Patient presents with Exposure Cough 30 WEEEKS Patient educated on plan of care for visit, swabbing technique, risks and benefits of test and length of time to receive results. Verbal consent obtained to perform test. CDC Fact Sheet for PatientsnCoV Diagnostic Panel dated 10/18/2019 provided. All vitals taken. Allergies reviewed. All medications reviewed. Fall risk assessed. Level of pain 0. [address] Catrina Terry RN 01/19/2020 1:45 PM documented in this encounter Plan of Treatment Name Type Priority Associated Diagnoses Order S chedule COVID-19 (PCR MOLECULAR LAB Routine Suspected Covid-1 9 Virus Expected: 01/19/2020, TESTING) Infection Expires: 2020 Health Maintenance Due Date Last Done Comments VARICELLA VACCINES (1 of 2 - 1985 2-dose childhood series) DTaP,Tdap,and Td Vaccines (1 - 1995 Tdap) Depression Screening 1996 PAP SMEAR 2005 INFLUENZA VACCINE (Season Ended) 2020 PNEUMOCOCCAL 0-64 YEARS COMBINED Aged Out No longer eligible based on SERIES patient's age to complete this topic documented as of this encounter Results Not on filedocumented in this encounter Visit Diagnoses Diagnosis Suspected Covid-19 Virus Infection - Dot edwina Cough documented in this encounter Insurance Payer Benefit Plan / Subscriber ID Effective Phone Address T ype Group Dates [facility] xxxxxxxxx 2019-Prese [address] Medic aid HEALTH CHOICE - [place] [id number] 1 MANAGED MEDICAID [place], [place] MEDICAID [id number] documented as of this encounter
--- OUTSIDE RECORDS SUMMARY | 2020-01-26 05:47 | XMS REPORT | Continuity of Care Document ---
:1985 Author Organization [facility] t Address [address] [place] [address] Care Team Providers Name Role Phone Pob1, Care Clinic Attending Clinician Unavailable Payers Payer Name Policy Type Policy Number Effective Date Expiration Date S ource Problems This patient has no known problems. Allergies, Adverse Reactions, Alerts This patient has no known allergies or adverse reactions. Medications This patient has no known medications. Procedures This patient has no known procedures. Encounters Start End Encounter Admission Attending Care Care Encounter Source Date/Time Date/Time Type Type Clinicians Facility Department ID 2020-01-20 2020-01-20 Telephone Pob1, Acute [facility] [id number] 00:00:00 00:00:00 [place] [id number] [place] [id number] [place] [phone] [address]al [address] 2020-01-19 2020-01-19 Urgent Pob1, Acute [facility] [id number] 13:34:09 13:54:09 [facility] [id number] [place] [id number] [place] [phone] nal [address] Results Test Description Test Time Test Comments Results Result [facility] e Comments - ABDOMEN LTD 2020-01-05 Name: RENÉE CONTEH 10:10:00 [facility] [place] : 1985 Age/S: 34 / F [address] [place] [address] Unit #: [id number] Loc: [place] [address] Phys: Aiyana Locke MD Acct: [id number] Dis Date: Status: REG CLI PHONE #: [phone] Exam Date: 01/05/2020956 FAX #: [phone] Reason: R10.11,RIGHT UPPER QUADRANT ABDOMINAL PAIN EXAMS: CPT CODE: [id number] ABDOMEN [facility] [id number] PROCEDURE: ABDOMINAL ULTRASOUND INDICATION: 34-year-old female with right upper quadrant abdominal pain COMPARISON: None TECHNIQUE: Sonographic evaluation of the abdomen was performed with supplemental color and pulsed Doppler. FINDINGS: LIVER: The liver is normal in size, contour and morphology with normal parenchymal echogenicity. Hepatopedal flow in the main portal vein. GALLBLADDER: Shadowing stones noted. No pericholecystic fluid or wall thickening. Negative sonographic Edgar sign. BILE DUCTS: No biliary dilatation. The common duct measures 3 mm. PANCREAS: The visualized pancreas appears normal. KIDNEYS: The right kidney measures 11.6 cm in length. Normal contour and parenchymal echogenicity. There is no hydronephrosis, nephrolithiasis, mass lesion or perinephric collection. Additional comments: No free intraperitoneal fluid. IMPRESSION: 1. Cholelithiasis. SL: [id number] at 1010 Reported and signed by: Denny Galindo M.D. CC: Aiyana Locke Technologist: Martha Valdez RDMS(AB)(OB) Trnscb Date/Time: 01/05/2020 (1010) [email or web address] Orig Print D/T: S: 01/05/2020 (1013) Probe: PAGE 1 Signed Report
--- OUTSIDE RECORDS SUMMARY | 2020-01-26 05:47 | XMS REPORT | Summary of Care ---
:1985 Author Organization [facility] Address [address] [place] [id number] Care Team Providers Name Role Phone Pcp, Patient Does Not Have A Primary Care Provider +1-000-00 0-0000 Reason for Visit Reason Comments Results covid Encounter Details Date Type Department Care Team Description 01/20/2020 Telephone [facility] [employer] Family Pob1, Acute Care Resul ts (covid) [address] [place] [address] Allergies No Known Allergiesdocumented as of this encounter (statuses as of 01/20/2020) Medications Medication Sig Dispensed Refills Start Date End Date Status 25/iron Take by mouth. 0 Active fum/folic/dha (-1 ORAL) iron Take by mouth. 0 Acti ve bis-gly/FA/C/B12/Ca/succ (IRON-150 ORAL) documented as of this encounter (statuses as of 01/20/2020) Active Problems Estimated Date of Delivery Comments Yes 03/27/2020 No known active problemsdocumented as of this encounter (statuses as of 01/20/2020) Social History Tobacco Use Types Packs/Day Years [...] of this encounter Last Filed Vital Signs Not on filedocumented in this encounter Plan of Treatment Health Maintenance Due Date Last Done Comments [...] Results Not on filedocumented in this encounter Insurance Payer Benefit Plan / Subscriber ID Effective Phone Address T e Group [facility] xxxxxxxxx 2019-Prese [address]OX Medic aid HEALTH CHOICE - HEALTH CHOICE nt [id number] 1 [facility] MEDICAID [place], [place] MED[place]ID [id number] documented as of this encounter
--- NOTE | 2020-01-26 07:16 | EDPHYS ---
Physician Documentation [facility] Name: Ale Mir Age: 34 yrs Sex: Female : 1985 Arrival Date: 01/26/2020 Time: 05:47 Bed External Waiting Private MD: LUI Physician Eddie Alvarado HPI: 01/25 06:08 This 34 yrs old Female presents to ER via Ambulatory with complaints of kb Abdominal Pain - 31 wks . 06:08 The patient presents with abdominal pain in the right upper quadrant. Onset: The kb symptoms/episode began/occurred 1 hour(s) ago. The symptoms do not radiate. Associated signs and symptoms: Pertinent positives: , no movement since last night, Pertinent negatives: constipation, diarrhea, fever, vaginal discharge, vomiting. The symptoms are described as constant. Modifying factors: The symptoms are alleviated by nothing, the symptoms are aggravated by nothing. Severity of pain: At its worst the pain was moderate in the emergency department the pain is unchanged. The patient has experienced similar episodes in the past. The patient has not recently seen a physician. 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 States "I just feel bad." Also reports discomfort to entire abd and hasn't felt any movements since last night. States she has had the RUQ many times in the past and knows it is gallstones, plans to have surgery after delivery. Pt is 31 weeks .. 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 - Social history:: Smoking status: Patient denies any tobacco usage or history of. ROS: 06:07 Constitutional: Negative for fever, chills, and weight loss, Cardiovascular: Negative kb for chest pain, palpitations, and edema, Respiratory: Negative for shortness of breath, cough, wheezing, and pleuritic chest pain, Back: Negative for injury and pain, : Negative for injury, bleeding, discharge, and swelling, MS/Extremity: Negative for injury and deformity, Skin: Negative for injury, rash, and discoloration, Neuro: Negative for headache, weakness, numbness, tingling, and seizure. 06:07 Abdomen/GI: Positive for abdominal pain. Exam: 06:11 Constitutional: This is a well developed, well nourished patient who is awake, alert, kb and in no acute distress. Head/Face: Normocephalic, atraumatic. Chest/axilla: Normal chest wall appearance and motion. Nontender with no deformity. No lesions are appreciated. Cardiovascular: Regular rate and rhythm with a normal S1 and S2. No gallops, murmurs, or rubs. Normal PMI, no JVD. No pulse deficits. Respiratory: Lungs have equal breath sounds bilaterally, clear to auscultation and percussion. No rales, rhonchi or wheezes noted. No increased work of breathing, no retractions or nasal flaring. Skin: Warm, dry with normal turgor. Normal color with no rashes, no lesions, and no evidence of cellulitis. MS/ Extremity: Pulses equal, no cyanosis. Neurovascular intact. Full, normal range of motion. Neuro: Awake and alert, GCS 15, oriented to person, place, time, and situation. Cranial nerves II-XII grossly intact. Motor strength 5/5 in all extremities. Sensory grossly intact. Cerebellar exam normal. Normal gait. 06:11 Abdomen/GI: Inspection: gravid appearance, is noted, Bowel sounds: normal, in all quadrants, Palpation: soft, mild abdominal tenderness, in the right upper quadrant. Vital Signs: 05:52 BP 152 / 88; Pulse 101; Resp 18; Pulse Ox 100% on R/A; sg 06:07 Temp 98.2(O); jb4 MDM: 06:01 Patient medically screened. kb 06:10 Data reviewed: vital signs, nurses notes. Data interpreted: Pulse oximetry: on room air kb is 100 %. Interpretation: normal. ED course: Pt sent to [facility] for evaluation. Will return to ER after cleared from OB standpoint. 07:14 Counseling: I had a detailed discussion with the patient and/or guardian regarding: the kb historical points, exam findings, and any diagnostic results supporting the discharge/admit diagnosis, the need for outpatient follow up, a joint runner, an OB/Gyne specialist, to return to the emergency department if symptoms worsen or persist or if there are any questions or concerns that arise at home. ED course: Pt cleared by [facility]. Pt feeling better and does not want any further workup at this time. Will return for worsening symptoms. Administered Medications: No medications were administered Disposition: 01/26/20 07:15 Discharged to Home. Impression: Upper abdominal pain, unspecified. - Condition is Stable. - Discharge Instructions: Biliary Colic, Adult, Abdominal Pain, Adult, [id number]. - Medication Reconciliation Form, Thank You Letter, Antibiotic Education, Prescription Opioid Use form. - Follow up: Private Physician; When: 2 - 3 days; Reason: Recheck today's complaints, Continuance of care, Re-evaluation by your physician. Follow up: Emergency Department; When: As needed; Reason: Worsening of condition. Addendum: 01/28/2020 19:42 Co-signature as Attending Physician, Eddie Alvarado MD. [facility] Signatures: Bernie Mccarthy, LIONEL-C LIONEL-Johnathan Aguiar RN RN sg Eddie Alvarado MD MD [email or web address] Corrections: (The following items were deleted from the chart) 01/25 07:30 07:15 01/26/2020 07:15 Discharged to Home. Impression: Upper abdominal pain, sg unspecified. Condition is Stable. Forms are Medication Reconciliation Form, Thank You Letter, Antibiotic Education, Prescription Opioid Use. Follow up: Private Physician; When: 2 - 3 days; Reason: Recheck today's complaints, Continuance of care, Re-evaluation by your physician. Follow up: Emergency Department; When: As needed; Reason: Worsening of condition. kb
--- NOTE | 2020-01-26 07:16 | ER ---
Nurse's Notes [facility] Name: Ale Mir Age: 34 yrs Sex: Female : 1985 Arrival Date: 01/26/2020 Time: 05:47 Bed External Waiting Private MD: Diagnosis: Upper abdominal pain, unspecified Presentation: 01/25 05:52 Chief complaint: Patient states: RUQ abdominal pain that began about an hour ago, sg reports hx of gallstones, similar pain, reports nausea/vomiting. Coronavirus screen: Proceed with normal triage. Ebola Screen: Patient negative for fever greater than or equal to 101.5 degrees Fahrenheit, and additional compatible Ebola Virus Disease symptoms Patient denies exposure to infectious person. Patient denies travel to an Ebola-affected area in the 21 days before illness onset. No symptoms or risks identified at this time. Initial Sepsis Screen: Does the patient meet any 2 criteria? No. Patient's initial sepsis screen is negative. Does the patient have a suspected source of infection? No. Patient's initial sepsis screen is negative. Risk Assessment: Do you want to hurt yourself or someone else? Patient reports no desire to harm self or others. Onset of symptoms was January 26, 2020. Care prior to arrival: None. 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 - Social history:: Smoking status: Patient denies any tobacco usage or history of. Screenin:48 Abuse screen: Denies threats or abuse. Denies injuries from another. Nutritional sg screening: No deficits noted. Tuberculosis screening: No symptoms or risk factors identified. Never had TB. Fall Risk None identified. Assessment: 05:48 Reassessment: pt reports to BRENDA Gibbs decreased movement and lower abd pain as sg well. LD notified of pt complaint pt has been transported to for evaluation, but will remain active in the ED until cleared and can return for tx. 06:44 Reassessment: this pt remains off the unit in LD at this time. sg 07:10 General: Appears in no apparent distress. well groomed, well developed, well nourished, sg Behavior is calm, cooperative, appropriate for age. Pain: Complains of pain in right upper quadrant Quality of pain is described as aching, sharp, reports symptoms have resolved, Anatoly FLOWERS notified, re evaluated, pt discharged to home. Vital Signs: 05:52 BP 152 / 88; Pulse 101; Resp 18; Pulse Ox 100% on R/A; sg 06:07 Temp 98.2(O); jb4 ED Course: 05:47 Patient arrived in ED. ag3 05:51 Juice Maher, RN is Primary Nurse. jb4 05:52 Arm band placed on. sg 05:53 Triage completed. sg 05:55 Patient has correct armband on for positive identification. Bed in low position. Call sg light in reach. Side rails up X2. Pulse ox on. NIBP on. 05:55 Warm blanket given. Head of bed elevated. sg 06:01 Bernie Mccarthy FNP-C is PHCP. kb 06:01 Eddie Alvarado MD is Attending Physician. kb 07:20 No provider procedures requiring assistance completed. Patient did not have IV access sg during this emergency room visit. Administered Medications: No medications were administered Outcome: 07:15 Discharge ordered by . kb 07:20 Discharged to home with family. sg 07:20 Condition: good 07:20 Instructed on follow up and referral plans. safety practices, Demonstrated understanding of instructions. 07:30 Patient left the ED. sg Signatures: Bernie Mccarthy FNP-C FNP-Johnathan Aguiar, RN RN sg Juice Maher, RN RN jb4 Angelina Prince ag3
[2020-01-26 07:43] VITALS: BP 152/88; O2SAT 100
[2020-01-26 07:45] VITALS: TEMP 98.2
== END 2020-01-26 07:30 | disposition home or self-care (01) ==
LOC: ER 05:45
DX: O26.893 Other specified pregnancy related conditions, third trimester (principal); Z3A.31 31 weeks gestation of pregnancy
CPT/HCPCS: 99283

== ENCOUNTER 2024-04-29 12:45 | Emergency (ER) | payer SELFPAY ==
--- OUTSIDE RECORDS SUMMARY | 2024-04-29 12:49 | XMS REPORT | Continuity of Care Document ---
Author Name Unknown Address [address] [facility] [address] [place] [address] [facility] Address [address] [facility] [place] [address] Care Team Providers Care Safety Relief Valve Technician Name Role Phone PCP, PATIENT DOES NOT HAVE A Primary Care Physic tre Unavailable ASTER CARLIN Attending Clinician Unavailable MICHELE MC Attending Clinician Unavailable MICHELE MC Attending Clinician Unavailable Michele Mc MD Attending Clinician [phone] ROUSE_F Attending Clinician Unavailable GC_GCBZW_Giannadiyala_S Attending Clinician Unavailradha GARCIA Attending Clinician Unavailable GEORGETTE Attending Clinician Unavailable Melvin Pitts Attending Clinician [phone] Provider, [facility] Attending Clinician Un available Chris Garcia Attending Clinician [phone] CHRIS STAFFORD Attending Clinician Unavailable Nathan Bundy DO Attending Clinician [phone] Only, Adc Test Attending Clinician Unavailable Umair No MD Attending Clinician [phone] Lab, Adc Fam Pob I Attending Clinician Unavailab Aster Lin MD Attending Clinician Pob, Adc Lab Main Attending Clinician Unavailmaureen Ding MD, Yoandy Edwards Attending Clinician [phone] YOANDY DING Attending Clinician Unavailable Doctor Unassigned, Powers Attending Clinician U Aiyana Faith Attending Clinician Unavailable Hollis RN, Ashley Attending Clinician Gabi ulrich Pcp, Patient Does Not Have A Attending Clinician Vu Vides Attending Clinician [phone] VU RO Attending Clinician Unavailable Pob1, Acute [facility] Attending Clinician Unav ASTER Mcdonnell Admitting Clinician Unavailable MICHELE MC Admitting Clinician Unavailable ROUSE_F Admitting Clinician Unavailable GC_GCBZW_Sruthia_S Admitting Clinician Unavaila cornel PITTS_R Admitting Clinician Unavailable GEORGETTE Admitting Clinician Unavailable Aster Carlin MD Admitting Clinician [phone] Aiyana Locke Admitting Clinician Unavailable Physician, No Primary or Family Admitting Clinic tre Unavailable Payers Payer Name Policy Type Policy Number Effective Date Expirati on Date Source [facility] MEDICAID [id number] 2019 00:00:00 MEDICAID PENDING PENDING 2024 00:00:00 [employer] - ACS BENEFIT SERVICES (PPO) [id number] 2021 00:00:00 [facility] (MEDICARE REPLACEMENT/[place] GE - PPO) [id number] 2021 00:00:00 Problems Condition Name Condition Details Condition Category Status Onset Date Resolution Date Last Treatment Date Treating Clinician Comments Source Hyperchole sterolemia Hyperchole sterolemia Problem Active 2020-08 00:00: 00 [facility] Anxiety Anxiety Problem Active 2020-08 00:00: 00 [facility] Biliary colic Biliary colic Disease Active 2019-08 00:00: 00 Overview: Formattin g of this note might be different from the original. Added automatic ally from request for surgery [id number] [facility] No known active problems No known active problems Disease [facility] Allergies, Adverse Reactions, Alerts Allergy Name Allergy Type Status Severity Reaction(s) Onset Date Inactive Date Treating Clinician Comments Source No Known Allergie s DA Active U 02-03 00:00: 00 [facility] No Known Allergie s DA Active 02-03 00:00: 00 [facility] NO KNOWN ALLERGIE S Drug Class Active [facility] Social History Social Habit Start Date Stop Date Quantity Comments Source ASSERTION 2019-07-05 00:00:00 [facility] Exposure to SARS-CoV-2 (event) Not sure [facility] History of tobacco use Current smoker [facility] Sexual orientation U [facility] Alcohol intake 2020-12-19 00:00:00 2020-12-19 00:00:00 Current drinker of alcohol (finding) [facility] Alcoholic beverage intake 2020-12-19 00:00:00 2020-12-19 00:00:00 Current drinker of alcohol (finding) [facility] History of Social function 2020-05-30 00:00:00 2020-05-30 00:00:00 [facility] Tobacco use and exposure 2020-05-19 00:00:00 2020-05-19 00:00:00 Smokeless tobacco non-user [facility] Tobacco Comment 2020-05-19 00:00:00 2020-05-19 00:00:00 quit about 1 yr ago [facility] Alcohol Comment 2020-05-19 00:00:00 2020-05-19 00:00:00 socially [facility] Sex assigned at 1985 00:00:00 1985 00:00:00 [facility] Smoking Status Start Date Stop Date Source Unknown if ever smoked [facility] Light Tobacco Smoker [facility] Ex-smoker 2020-05-19 00:00:00 2020-05-19 00:00:00 U [facility] Never smoker [facility] Medications Ordered Medication Name Filled Medication Name Start Date Stop Date Current Medication? Ordering Clinician Indication Dosage Frequency Signature (SIG) Comments Components Source acetaminoph en (TYLENOL) tablet 1,000 mg 03-15 01:45: 00 03-15 02:02 :00 No 1000mg 1,000 mg, Oral, ONCE, 1 dose, On 03/14/24 at 2044, SHAREE [facility] ibuprofen (IBU) tablet 600 mg 03-15 01:45: 00 03-15 02:02 :00 No 600mg 600 mg, Oral, ONCE, 1 dose, On 03/14/24 at 2044, SHAREE [facility] iopamidol (ISOVUE 370-500 mL) injection 100 mL 03-15 01:15: 00 03-15 01:27 :00 No [id number] 100mL 100 mL, Intravenou s, ONCE, 1 dose, On 03/14/24 at 2015, Routine [facility] ibuprofen 600 mg tablet 03-14 00:00: 00 Yes [id number] 600mg Take 1 tablet by mouth every 6 (six) hours as needed for Pain (scale 4-6). [facility] methocarbam oL 500 mg tablet 03-14 00:00: 00 Yes [id number] 500mg Take 1 tablet by mouth 4 (four) times daily as needed for Pain (scale 7-10). [facility] lidocaine 2% viscous (LIDOCAINE VISCOUS) 2 % solution 17 00:00: 00 12-25 04:59 :00 No [id number] 15mL Take 15 mL by mouth every 6 (six) hours as needed for Oral mucosal pain for up to 5 days. [facility] 25/iron fum/folic/d thomas (-1 ORAL) 2019-08 21:33: 42 Yes Take by mouth. [facility] iron bis-gly/FA/ C/B12/Ca/martines cc (IRON-150 ORAL) 2019-08 21:33: 42 Yes Take by mouth. [facility] iron bis-gly/FA/ C/B12/Ca/martines cc (IRON-150 ORAL) 2019-08 15:33: 42 Yes Take by mouth. [facility] 25/iron fum/folic/d thomas (-1 ORAL) 2019-08 21:16: 56 Yes Take by mouth. [facility] iron bis-gly/FA/ C/B12/Ca/martines cc (IRON-150 ORAL) 2019-08 21:16: 56 Yes Take by mouth. [facility] lactated ringers IV infusion 1,000 mL 2019-08 19:45: 00 Yes 1000mL at 100 mL/hr, 1,000 mL, IV Infusion, CONTINUOUS , Starting Sat05/30/20 at 1445, Until Discontinu ed, Routine, PACU [facility] HYDROcodone -acetaminop hen (NORCO 5) 5-325 mg tablet 1 tablet 2019-08 19:45: 00 05-30 20:36 :00 No 1{tbl} 1 tablet, Oral, ONCE, 1 dose, 05/30/20 at 1445, Routine, PACU [facility] HYDROmorpho ne (DILAUDID) injection 0.2 mg 2019-08 19:37: 22 Yes .2mg 0.2 mg, Slow IV Push, Q5MIN PRN, 10 doses, Starting 05/30/20 at 1437, Until Discontinu ed, Routine, Pain (scale 7-10), PACU
Us e approved by (Faculty): PACU USE -ANESTHESI A SERVICE-HY DROMORPHON E INJECTIONS [facility] FENTanyl PF (SUBLIMAZE (PF)) injection 25 mcg 2019-08 19:37: 22 Yes 25ug 25 mcg, Slow IV Push, Q5MIN PRN, 4 doses, Starting 05/30/20 at 1437, Until Discontinu ed, Routine, Pain (scale 4-6), PACU [facility] ondansetron (ZOFRAN (PF)) injection 4 mg 2019-08 19:37: 22 Yes 4mg 4 mg, Slow IV Push, PRN, 1 dose, Starting 05/30/20 at 1437, Until Discontinu ed, Routine, Nausea and Vomiting (N/V), PACU [facility] sodium chloride 0.9 % irrigation solution 2019-08 19:18: 00 Yes PRN, Starting 05/30/20 at 1418, Until Discontinu ed, Intra-op [facility] lidocaine 1% (XYLOCAINE) 10 mg/mL (1 %) injection 2019-08 19:18: 00 Yes PRN, Starting 05/30/20 at 1418, Until Discontinu ed, Routine, Intra-op [facility] iohexoL (OMNIPAQUE 300-50 mL)) injection 2019-08 19:17: 00 Yes PRN, Starting Sat05/30/20 at 1417, Until Discontinu ed, Routine, [facility]up[facility] -epinephrin [facility]-pf (SENSORCAIN E W/EPINEPHRI NE) 0.5 %-1:200,000 injection 2019-08 19:17: 00 Yes PRN, Starting 05/30/20 at 1417, Until Discontinu ed, Routine, Intra-op [facility] lactated ringers IV infusion 1,000 mL 2019-08 16:00: 00 05-30 16:20 :00 No 1000mL at 42 mL/hr, 1,000 mL, IV Infusion, ONCE, 1 dose, Sat05/30/20 at 1100, Routine, DSU Pre-op [facility] ibuprofen 800 mg tablet 2019-08 00:00: 00 Yes [id number] 800mg Take 1 tablet by mouth every 6 (six) hours as needed for Pain (scale 1-3). [facility] acetaminoph en 500 mg tablet 2019-08 00:00: 00 Yes [id number] 500mg Take 1 tablet by mouth every 6 (six) hours as needed for Pain. [facility] traMADoL (ULTRAM) 50 mg tablet 2019-08 00:00: 00 06-07 05:59 :00 No [id number] 50mg Take 1 tablet by mouth every 6 (six) hours as needed for Pain (scale 4-6) or Pain (scale 7-10) for up to 7 days. Indication s: acute pain [facility] 25/iron fum/folic/d thomas (-1 ORAL) 2019-08 0 19:56: 42 Yes Take by mouth. [facility] iron bis-gly/FA/ C/B12/Ca/martines cc (IRON-150 ORAL) 2019-08 15:47: 08 Yes Take by mouth. [facility] 25/iron fum/folic/d thomas (-1 ORAL) 2019-08 015 20:40: 41 Yes Take by mouth. [facility] iron bis-gly/FA/ C/B12/Ca/martines cc (IRON-150 ORAL) 2019-08 015 20:40: 41 Yes Take by mouth. [facility] iron bis-gly/FA/ C/B12/Ca/martines cc (IRON-150 ORAL) 616 18:45: 08 Yes Take by mouth. [facility] 25/iron fum/folic/d thomas (-1 ORAL) 6 18:45: 08 Yes Take by mouth. [facility] ciprofloxac in 500 mg tablet Take 1 tablet every 24 hours by oral route for 3 days. ciprofloxac in 500 mg tablet Take 1 tablet every 24 hours by oral route for 3 days. No 1 Q24H ciprofloxa lety 500 mg tablet Take 1 tablet every 24 hours by oral route for 3 days. [facility] dextroamphe tamine-amph etamine 30 mg tablet TAKE 1 TABLET BY MOUTH TWICE A DAY dextroamphe tamine-amph etamine 30 mg tablet TAKE 1 TABLET BY MOUTH TWICE A DAY No dextroamph etamine-am phetamine 30 mg tablet TAKE 1 TABLET BY MOUTH TWICE A DAY [facility] duloxetine 60 mg capsule,del ayed release Take 1 capsule every day by oral route. duloxetine 60 mg capsule,del ayed release Take 1 capsule every day by oral route. No duloxetine 60 mg capsule,de layed release Take 1 capsule every day by oral route. [facility] Immunizations Ordered Immunization Name Filled Immunization Name Date Status Comments Source influenza, injectable, quadrivalent influenza, injectable, quadrivalent Unknown Completed [facility] COVID-19 (SARS-COV-2) vaccine, unspecified COVID-19 (SARS-COV-2) vaccine, unspecified Unknown Completed [facility] COVID-19 (SARS-COV-2) vaccine, unspecified COVID-19 (SARS-COV-2) vaccine, unspecified Unknown Completed [facility] Vital Signs Vital Name Observation Time Observation Value Comments S anna Systolic blood pressure 2024-03-15 03:05:00 134 mm[Hg] [facility] Diastolic blood pressure 2024-03-15 03:05:00 78 mm[Hg] [facility] Heart rate 2024-03-15 03:05:00 89 /min [facility] Body temperature 2024-03-15 03:05:00 36.67 Catrachita [facility] Respiratory rate 2024-03-15 03:05:00 15 /min [facility] Oxygen saturation in Arterial blood by Pulse oximetry 2024-03-15 03:05:00 98 /min [facility] Body height 2024-03-15 02:50:19 170.2 cm [facility] Body weight 2024-03-15 02:50:19 72.576 kg [facility] BMI 2024-03-15 02:50:19 25.06 kg/m2 [facility] Body Weight 2023-10-28 00:00:00 2560 [oz_av] [facility] BMI (Body Mass Index) 2023-10-28 00:00:00 24.3 kg/m2 [facility] BP Diastolic 2023-10-28 00:00:00 72 mm[Hg] [facility] BP Systolic 2023-10-28 00:00:00 106 mm[Hg] [facility] Height 2023-10-28 00:00:00 68 [in_i] [facility] Height 2021-12-22 00:00:00 68 [in_i] [facility] BP Diastolic 2021-12-08 00:00:00 85 mm[Hg] [facility] Height 2021-12-08 00:00:00 68 [in_i] [facility] BMI (Body Mass Index) 2021-12-08 00:00:00 25.2 kg/m2 [facility] BP Systolic 2021-12-08 00:00:00 135 mm[Hg] [facility] Body Weight 2021-12-08 00:00:00 2656 [oz_av] [facility] BP Diastolic 2021-11-21 00:00:00 78 mm[Hg] [facility] Height 2021-11-21 00:00:00 68 [in_i] [facility] BP Systolic 2021-11-21 00:00:00 118 mm[Hg] [facility] Systolic blood pressure 2020-12-19 22:16:00 121 mm[Hg] [facility] Diastolic blood pressure 2020-12-19 22:16:00 75 mm[Hg] [facility] Heart rate 2020-12-19 22:14:00 90 /min [facility] Body temperature 2020-12-19 22:14:00 37.17 Catrachita [facility] Respiratory rate 2020-12-19 22:14:00 12 /min [facility] Body height 2020-12-19 22:14:00 172.7 cm [facility] Body weight 2020-12-19 22:14:00 79.379 kg [facility] BMI 2020-12-19 22:14:00 26.61 kg/m2 [facility] Oxygen saturation in Arterial blood by Pulse oximetry 2020-12-19 22:14:00 97 /min [facility] Systolic blood pressure 2020-06-06 15:45:00 128 mm[Hg] [facility] Diastolic blood pressure 2020-06-06 15:45:00 64 mm[Hg] [facility] Heart rate 2020-06-06 15:45:00 80 /min [facility] Respiratory rate 2020-06-06 15:45:00 16 /min [facility] Body height 2020-06-06 15:45:00 172.7 cm [facility] Body weight 2020-06-06 15:45:00 87.454 kg [facility] BMI 2020-06-06 15:45:00 29.32 kg/m2 [facility] Systolic blood pressure 2020-06-06 15:45:00 128 mm[Hg] [facility] Diastolic blood pressure 2020-06-06 15:45:00 64 mm[Hg] [facility] Heart rate 2020-06-06 15:45:00 80 /min [facility] Respiratory rate 2020-06-06 15:45:00 16 /min [facility] Body height 2020-06-06 15:45:00 172.7 cm [facility] Body weight 2020-06-06 15:45:00 87.454 kg [facility] BMI 2020-06-06 15:45:00 29.32 kg/m2 [facility] Diastolic blood pressure 2020-05-30 20:55:00 53 mm[Hg] [facility] Heart rate 2020-05-30 20:55:00 81 /min [facility] Body temperature 2020-05-30 20:55:00 37 Catrachita [facility] Respiratory rate 2020-05-30 20:55:00 12 /min [facility] Oxygen saturation in Arterial blood by Pulse oximetry 2020-05-30 20:55:00 96 /min [facility] Systolic blood pressure 2020-05-30 20:55:00 117 mm[Hg] [facility] Body height 2020-05-27 19:45:00 172.7 cm [facility] Body weight 2020-05-27 19:45:00 88.451 kg [facility] BMI 2020-05-27 19:45:00 29.65 kg/m2 [facility] Systolic blood pressure 2020-05-19 20:39:00 124 mm[Hg] [facility] Diastolic blood pressure 2020-05-19 20:39:00 79 mm[Hg] [facility] Heart rate 2020-05-19 20:39:00 107 /min [facility] Body temperature 2020-05-19 20:39:00 36.67 Catrachita [facility] Respiratory rate 2020-05-19 20:39:00 16 /min [facility] Body height 2020-05-19 20:39:00 172.7 cm [facility] Body weight 2020-05-19 20:39:00 86.909 kg [facility] BMI 2020-05-19 20:39:00 29.13 kg/m2 [facility] Systolic blood pressure 2020-01-19 18:42:00 116 mm[Hg] [facility] Diastolic blood pressure 2020-01-19 18:42:00 70 mm[Hg] [facility] Heart rate 2020-01-19 18:42:00 101 /min [facility] Body temperature 2020-01-19 18:42:00 37.06 Catrachita [facility] Respiratory rate 2020-01-19 18:42:00 17 /min [facility] Body height 2020-01-19 18:42:00 172.7 cm [facility] Body weight 2020-01-19 18:42:00 92.987 kg [facility] BMI 2020-01-19 18:42:00 31.17 kg/m2 [facility] Oxygen saturation in Arterial blood by Pulse oximetry 2020-01-19 18:42:00 99 /min [facility] Procedures Procedure Date / Time Performed Performing Clinician Source TEST, SERUM 2024-03-15 01:54:00 Michele Mc [facility] COMP. METABOLIC PANEL ([id number]) 2024-03-15 01:54:00 Michele Mc [facility] CBC WITH DIFF 2024-03-15 01:54:00 Michele Mc [facility] CT TRAUMA CERVICAL SPINE WO CONTRAST 2024-03-15 01:25:38 Michele Mc [facility] CT TRAUMA THORACIC SPINE WO CONTRAST 2024-03-15 01:25:38 Michele Mc [facility] CT TRAUMA ABDOMEN PELVIS W CONTRAST 2024-03-15 01:25:38 Michele Mc [facility] CT TRAUMA LUMBAR SPINE WO CONTRAST 2024-03-15 01:25:38 Michele Mc [facility] CT TRAUMA HEAD WO CONTRAST 2024-03-15 01:25:38 Michele Mc [facility] CT TRAUMA THORAX W CONTRAST 2024-03-15 01:25:38 Michele Mc [facility] POCT GRP A STREP (MOLECULAR) 2020-12-19 22:26:00 Chris Stafford [facility] FL TIME OR (NON-REPORTABLE) 2020-05-30 19:19:30 Aster Carlin [facility] COMP. METABOLIC PANEL ([id number]) 2020-05-30 16:20:00 Aster Carlin [facility] TOTAL BETA HCG ASSAY 2020-05-30 16:20:00 Katy Carlin [facility] CBC WITH DIFF 2020-05-30 16:20:00 Aster Carlin [facility] POCT TEST 2020-05-30 16:00:00 Bruce Patel [facility] COVID-19 (ID NOW RAPID TESTING) 2020-05-27 20:52:00 Aster Carlin [facility] LAB ONLY COVID INTERPRETATION 2020-05-27 20:52:00 Aster Carlin [facility] CONSENT/REFUSAL FOR DIAGNOSIS AND TREATMENT 2020-05-27 20:28:17 Doctor Unassigned, Powers [facility] ASSIGNMENT OF BENEFITS 2020-05-27 20:27:50 Docto r Unassigned, Powers [facility] NOTICE OF PRIVACY PRACTICES 2020-05-19 20:20:15 Doctor Unassigned, Powers [facility] [id number] 2020-02-26 00:00:00 CHRISSIE [facility] [id number] 2020-02-26 00:00:00 RIDENA [facility] Removal of Urethral Stent [facility] Lithotripsy [facility] Delivery [facility] Cholecystectomy [facility] Plan of Care Planned Activity Planned Date Details Comments Source Diagnostic Test Pending 2023-10-28 00:00:00 urinalysis, dipstick [code = urinalysis, dipstick] [facility] Instructions [facility] Encounters Start Date/Time End Date/Time Encounter Type Admission Type Attending Clinicians Care Facility Care Department Encounter ID Source 2021-06-03 00:03:59 Outpatient ASTER MAHAJAN [facility] [id number] [facility] 2024-03-14 19:44:00 2024-03-14 23:46:00 Emergency T MICHELE MC BRENT [facility] ERT [id number] [facility] 2024-03-14 19:44:00 2024-03-14 23:46:00 Emergency Michele Mc [facility] [id number] [facility] 2023-11-13 00:00:00 2023-11-13 00:00:00 Outpatient ALFREDO_Bj [facility] [id number] [facility] 2023-10-28 00:00:00 2023-10-28 00:00:00 Veronika Chamberlain [facility]: [address] [facility], [place] [address] , Ph. ALFREDO_Bj [facility] - [facility], VERONIKA CHAMBERLIAN [facility]- [id number] [facility] 2023-06-01 00:00:00 2023-06-01 00:00:00 Outpatient GC_GCBZW_Ka diyala_S PRIV PRIV [id number] [facility] 2023-05-31 00:00:00 2023-05-31 00:00:00 Outpatient GC_GCBZW_Ka diyala_S PRIV PRIV [id number] [facility] 2022-10-10 00:00:00 2022-10-10 00:00:00 Outpatient GISSELLE_Sukhwinder [facility] [id number] 2022-06-24 00:00:00 2022-06-24 00:00:00 Outpatient ERICKSON_R [facility] [id number] 2022-05-19 00:00:00 2022-05-19 00:00:00 Outpatient ERICKSON_R [facility] [id number] 2022-04-30 00:00:00 2022-04-30 00:00:00 Outpatient ERICKSON_R [facility] [id number] 2022 00:00:00 2022 00:00:00 Outpatient ERICKSON_R [facility] [id number] 2022-02-15 08:42:00 2022-02-15 08:42:00 Outpatient LISTER_MELI IRA [facility] [id number] [facility] 2021-12-22 11:23:00 2021-12-22 11:23:00 Outpatient ERICKSON_R [facility] [id number] [facility] 2021-12-22 00:00:00 2021-12-22 00:00:00 Outpatient Melvin Pitts [facility] [id number] 2021-12-22 00:00:00 2021-12-22 00:00:00 Outpatient Melvin Pitts [facility] [id number] 2021-12-22 00:00:00 2021-12-22 00:00:00 Melvin Pitts, DO: [address], [place] [address] , Ph. [phone] [place] [address] - [facility], DR. PITTS [id number] [facility] 2021-12-08 11:29:00 2021-12-08 11:29:00 Outpatient ERICKSON_R [facility] [id number] [facility] [facility] 2021-12-08 00:00:00 2021-12-08 00:00:00 Outpatient Melvin Pitts [facility] [id number] 2021-12-08 00:00:00 2021-12-08 00:00:00 Melvin Pitts, DO: [address] [place] [place] [address] , Ph. [phone] [facility], [address] [place] [phone] [facility] 2021-11-21 03:57:00 2021-11-21 03:57:00 Outpatient ERCHEYENNE_R [facility] [id number] [facility] 2021-11-21 00:00:00 2021-11-21 00:00:00 Outpatient Melvin Pitts [facility] [id number] 2021-11-21 00:00:00 2021-11-21 00:00:00 Outpatient Melvin Pitts [facility] [id number] 2021-11-21 00:00:00 2021-11-21 00:00:00 Melvin Pitts, DO: [address] [place] [address] , Ph. [phone] [facility], [address] [place] [phone] [facility] 2021-08-11 09:05:00 2021-08-11 09:05:00 Outpatient ERICKSON_R [facility] [id number] 2021-07-25 01:23:00 2021-07-25 01:23:00 Outpatient ERICKSON_R [facility] [id number] 2021-07-14 11:01:00 2021-07-14 11:01:00 Outpatient ERICKSON_R [facility] [id number] 2020-12-19 17:06:47 2020-12-19 17:38:38 Urgent Care Provider, [facility] Urgent Care Melchor [facility] Office Building One 1..840.114 350.1.13.10 4.2.7.2.686 [id number] [facility] 2020-12-19 17:20:00 2020-12-19 17:20:00 Outpatient Sukhwinder STAFFORD CHRIS [facility] [id number] [facility] 2020-10-24 00:00:00 2020-10-24 00:00:00 Patient Outreach Nathan Bundy [facility] 1.2.840.114 350.1.13.10 4.2.7.2.686 [id number] [facility] 2020-08-18 09:41:48 2020-08-18 09:56:48 Laboratory Only Only, [facility] Test Umair No [facility] 1.2.840.114 350.1.13.10 4.2.7.2.686 [id number] [facility] 2020-08-18 09:41:48 2020-08-18 09:56:48 Laboratory Only Only, [facility] Test [facility] 1.2.840.114 350.1.13.10 4.2.7.2.686 [id number] 2020-08-18 09:15:00 2020-08-18 09:15:00 Outpatient R [facility] [id number] [facility] 2020-08-08 16:59:16 2020-08-08 17:19:16 Laboratory Only Lab, [facility] Fam Pob Chris Pritchett [facility] Office Building One 1..114 350.1.13.10 4.2.7.2.686 [id number] [facility] 2020-08-08 16:59:16 2020-08-08 17:19:16 Laboratory Only Lab, [facility] Fam [facility] Bon [facility] Office Building One 1.114 350.1.13.10 4.2.7.2.686 [id number] 2020-08-08 16:40:00 2020-08-08 16:40:00 Outpatient R CHRIS STAFFORD [facility] [id number] [facility] 2020-07-05 15:30:00 2020-07-05 15:30:00 Outpatient R ASTER CARLIN [facility] [id number] [facility] 2020-07-05 15:30:00 2020-07-05 15:30:00 Outpatient R ASTER CARLIN [facility] [id number] [facility] 2020-06-06 10:00:00 2020-06-06 10:00:00 Outpatient R ASTER CARLIN [facility] [id number] [facility] 2020-06-06 09:40:24 2020-06-06 09:58:07 Office Visit Aster Carlin [facility] Building 1.114 350.1.13.10 4.2.7.2.686 [id number] [facility] 2020-06-06 09:40:24 2020-06-06 09:58:07 Office Visit Aster Carlin [facility] Building 1..114 350.1.13.10 4.2.7.2.686 [id number] 2020-05-30 10:50:00 2020-05-30 16:07:00 Outpatient R ASTER CARLIN [facility] [id number] [facility] 2020-05-30 10:50:00 2020-05-30 16:07:00 Hospital Encounter Aster Carlin [facility] 1.2.840.114 350.1.13.10 4.2.7.2.686 [id number] [facility] 2020-05-27 15:26:18 2020-05-27 15:41:18 Laboratory Only Only, Adc Test Aster Carlin [facility] 1.2.840.114 350.1.13.10 4.2.7.2.686 [id number] [facility] 2020-05-27 15:26:18 2020-05-27 15:41:18 Laboratory Only Only, Adc Test [facility] 1.2.840.114 350.1.13.10 4.2.7.2.686 [id number] 2020-05-27 15:25:15 2020-05-27 15:40:15 Oyster Planter Visit Pob, Adc Lab Main Yoandy Ding Jerry [facility] Building 1.2.840.114 350.1.13.10 4.2.7.2.686 [id number] [facility] 2020-05-27 15:00:00 2020-05-27 15:00:00 Outpatient R YOANDY DING [facility] [id number] [facility] 2020-05-19 15:21:07 2020-05-19 16:21:35 Office Visit Aster Carlin [facility] nal Building 1.2.840.114 350.1.13.10 4.2.7.2.686 [id number] [facility] 2020-05-19 15:30:00 2020-05-19 15:30:00 Outpatient ASTER MAHAJAN [facility] [id number] [facility] 2020-05-19 00:00:00 2020-05-19 00:00:00 Orders Only Doctor Unassigned, Powers [facility] 1.2.840.114 350.1.13.10 4.2.7.2.686 [id number] [facility] 2020-03-08 12:30:00 2020-03-10 08:19:23 Inpatient Aiyana Bo [facility]D [id number] [facility] 2020-02-15 00:00:00 2020-02-15 00:00:00 Telephone Ashley Shafer [facility] 1.2.840.114 350.1.13.10 4.2.7.2.686 [id number] [facility] 2020-02-12 00:00:00 2020-02-12 00:00:00 Telephone Pcp, Patient Does Not Have A [facility] 1.2.840.114 350.1.13.10 4.2.7.2.686 [id number] [facility] 2020-02-11 08:48:44 2020-02-11 09:08:44 Laboratory Only Lab, Adc [facility] 1.2.840.114 350.1.13.10 4.2.7.2.686 [id number] [facility] 2020-02-11 08:40:00 2020-02-11 08:40:00 Outpatient VU CHARLES [facility] [id number] [facility] 2020-02-05 10:25:00 2020-02-05 10:25:00 Outpatient Aiyana Bo [facility] OUTD [id number] [facility] 2020-02-04 09:47:00 2020-02-04 09:47:00 Outpatient Aiyana Bo [facility] OUTD [id number] [facility] 2020-01-20 00:00:00 2020-01-20 00:00:00 Telephone Pob1, Acute Care [facility] Office Building One 1.2.840.114 350.1.13.10 4.2.7.2.686 [id number] [facility] 2020-01-19 13:34:09 2020-01-19 13:54:09 Urgent Care Po, [facility] 1..840.114 350.1.13.10 4.2.7.2.686 [id number] [facility] 2020-01-19 13:40:00 2020-01-19 13:40:00 Outpatient [facility] [id number] [facility] 2020-01-05 09:00:00 2020-01-05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 ATTEND: Aiyana Locke MD ADM AUTHOR: Osmin Calvo MD * ALL edits or amendments must be made on the electronic/computer document * Subjective Subjective Status/Day: post operative Patient reports: Patient reports: Yes no complaints, Yes normal lochia, Yes pain management effective, Yes tolerating po well, Yes voiding well, Yes voiding without pain, Yes tolerating ambulation Nursing reports: Nursing reports: Yes normal lochia, Yes pain management effective, Yes tolerating po well, Yes voiding well, Yes voiding without pain, Yes tolerating ambulation, No complaints Objective Nursing Documentation Review Nursing Data: The data set between the solid lines has been imported from nursing documentation. Any exceptions have been noted below under Provider comments. Feeding preference: Provider comments on imported nursing data: [] General VS: Vital Signs: Date Time Temp Pulse Resp B/P B/P Pulse O2 O2 Flow FiO2 Mean Ox Delivery Rate 02/26 0752 36.8 92 16 131/71 02/25 2333 36.8 92 18 127/70 02/25 1645 36.8 73 20 126/70 02/25 1515 18 02/25 1513 86.0 02/25 1513 72 125/60 02/25 1510 70 97 02/25 1505 75 99 02/25 1500 75 18 98 02/25 1459 85.0 02/25 1459 71 125/59 02/25 1455 73 99 02/25 1450 77 98 02/25 1445 77 18 99 02/25 1444 79.0 02/25 1444 81 114/55 02/25 1440 80 98 02/25 1435 80 100 02/25 1430 77 18 98 02/25 1429 75.0 02/25 1429 73 111/52 02/25 1425 89 98 02/25 1420 80 97 02/25 1415 77 18 97 02/25 1413 85.0 02/25 1413 78 124/61 02/25 1410 75 98 02/25 1405 78 100 02/25 1400 75 18 100 02/25 1358 93.0 02/25 1358 77 134/66 02/25 1355 81 100 02/25 1350 84 100 02/25 1345 78 100 02/25 1344 90.0 02/25 1344 79 18 134/63 02/25 1340 83 100 02/25 1335 86 100 02/25 1330 18 02/25 1330 82 100 02/25 1326 88.0 02/25 1326 86 130/61 02/25 1325 36.8 87 18 100 02/25 1110 37.0 18 Patient Weight Weight (lb): 205 Weight (oz): Weight (kg): 92.986 Physical Exam Incision site: well approximated edges, dry, no drainage, no inflammation Uterus: firm, involution appropriate Fundus: firm, at the umbilicus Lochia: moderte Lower extremities: Edema: none Tejas's sign: negative Calf tenderness: negative Result Findings/Data: Laboratory Tests: 02/26 02/25 02/25 02/25 0430 1254 1250 1040 Blood Gas Cord Blood pH (7.18 - 7.38) 7.25 Cord Blood PCO2 (32 - 66 mmHg) 49 Cord Blood PO2 (6 - 30 mmHg) 18 Cord Blood HCO3 (17 - 27 mmol/L) 21 Cord Base Excess (-8.0 - 0.0 mmol/L) -6.0 Cord O2 Saturation (72 - 77 %) 19 L Cord VBG pH (7.25 - 7.45) 7.36 Cord VBG pCO2 (27 - 49 mmHg) 32 Cord VBG pO2 (17 - 41 mmHg) 30 Cord VBG HCO3 (12 - 28 MMOL/L) 18.2 Cord VBG Base Excess (-8.0 - 0.00 mmol/L) -7.0 Cord VBG O2 Sat (%) 56 Chemistry Sodium (134 - 147 mEq/L) 139 Potassium (3.4 - 5.0 mEq/L) 3.7 Chloride (100 - 108 mEq/L) 109 H Carbon Dioxide (21 - 33 mEq/L) 22 Anion Gap (0 - 20) 12 BUN (7 - 18 mg/dL) 3 L Creatinine (0.6 - 1.3 mg/dL) 0.5 L Glomerular Filtr Rate (105 - 110) 140.4 H Glucose (70 - 110 mg/dL) 100 Calcium (8.0 - 10.5 mg/dL) 9.2 Total Bilirubin (<1.5 MG/DL) 0.5 AST (15 - 37 IUnit/L) 19 ALT (15 - 65 IUnit/L) 17 Total Alk Phosphatase (20 - 125 IUnit/L) 143 H Total Protein (6.4 - 8.2 g/dL) 5.8 L Albumin (3.4 - 5.0 g/dL) 2.20 L Hematology WBC (4.5 - 11.0 x10 3/uL) 16.89 H RBC (3.54 - 5.02 x10 6/uL) 3.04 L Hgb (11.0 - 15.0 g/dL) 9.8 L Hct (33.0 - 45.0 %) 29.3 L MCV (81.0 - 99.0 fL) 96.4 MCH (27.0 - 33.0 pg) 32.2 MCHC (33.0 - 37.0 g/dL) 33.4 RDW (11.5 - 14.5 %) 13.9 Plt Count (150 - 400 x10 3/uL) 236 MPV (7.0 - 9.0 fL) 10.5 H Neut % (Auto) (56.0 - 77.0 %) 77.1 H Lymph % (Auto) (14.0 - 32.0 %) 13.1 L [place] % (Auto) (4.8 - 9.0 %) 7.6 Eos % (Auto) (0.3 - 3.7 %) 0.5 Baso % (Auto) (0.0 - 2.0 %) 0.4 Neut # (Auto) (2.0 - 7.6 x10 3/uL) 13.03 H Lymph # (Auto) (1.0 - 3.8 x10 3/uL) 2.21 [place] # (Auto) (0.1 - 0.8 x10 3/uL) 1.28 H Eos # (Auto) (0.0 - 0.2 x10 3/uL) 0.08 Baso # (Auto) (0.0 - 0.2 x10 3/uL) 0.07 Abs Immat Gran (auto) (0.00 - 0.03 x10 3/uL) 0.22 H Add Manual Diff NO Immature Gran % (0.0 - 2.0 %) 1.3 Nucleated RBC % (0 - 0 %) 0.0 Nucleated RBCs # (Man) (0.0 - 0.1 x10 3/uL) 0.00 Serology SARS-CoV-2 Ag (Rapid) (Negative) Negative 02/25 1020 Hematology WBC (4.5 - 11.0 x10 3/uL) 11.74 H RBC (3.54 - 5.02 x10 6/uL) 3.15 L Hgb (11.0 - 15.0 g/dL) 10.1 L Hct (33.0 - 45.0 %) 30.1 L MCV (81.0 - 99.0 fL) 95.6 MCH (27.0 - 33.0 pg) 32.1 MCHC (33.0 - 37.0 g/dL) 33.6 RDW (11.5 - 14.5 %) 14.3 Plt Count (150 - 400 x10 3/uL) 235 MPV (7.0 - 9.0 fL) 10.2 H Neut % (Auto) (56.0 - 77.0 %) 70.5 Lymph % (Auto) (14.0 - 32.0 %) 17.9 [place] % (Auto) (4.8 - 9.0 %) 6.9 Eos % (Auto) (0.3 - 3.7 %) 0.9 Baso % (Auto) (0.0 - 2.0 %) 0.5 Neut # (Auto) (2.0 - 7.6 x10 3/uL) 8.27 H Lymph # (Auto) (1.0 - 3.8 x10 3/uL) 2.10 [place] # (Auto) (0.1 - 0.8 x10 3/uL) 0.81 H Eos # (Auto) (0.0 - 0.2 x10 3/uL) 0.11 Baso # (Auto) (0.0 - 0.2 x10 3/uL) 0.06 Abs Immat Gran (auto) (0.00 - 0.03 x10 3/uL) 0.39 H Add Manual Diff NO Immature Gran % (0.0 - 2.0 %) 3.3 H Nucleated RBC % (0 - 0 %) 0.0 Nucleated RBCs # (Man) (0.0 - 0.1 x10 3/uL) 0.00 Serology Hep Bs Antigen (NonReactive INDEX) NON REACTIVE HIV 1 2 Antibody (NONREACTIVE INDEX) NONREACTIVE Diagnosis, Assessment Plan Diagnosis, Assessment Plan Problem List/A P: 1. 35-36 completed weeks of gestation 2. Previous delivery, antepartum 3. History of 2 sections 4. Obesity affecting in third trimester 5. Anemia affecting in third trimester Assessment: nml progress, nutrit. defiency anemia Plan: routine care, discharge today Consultation(s): Consultation performed: anesthesia, vehicle technician Plan discussed with: patient at 1014 RPT #:[id number] END OF REPORT [facility] 2020-02-27 00:26:00 [facility] ([facility]) Pain Management Progress Note REPORT#:[id number] REPORT STATUS: Signed DATE:02/27/20 TIME: 25 PATIENT: RENÉE CONTEH UNIT #: [id number] ROOM/BED: [place] [address] : 84 AGE: 34 SEX: F ATTEND: Aiyana Locke MD ADM AUTHOR: Rex Medel JR, MD * ALL edits or amendments must be made on the electronic/computer document * Diagnosis, Assessment Plan Free text A P: POD #1 Patient seen and examined Epidural Catheter insertion site clean, dry, intact Current pain scale [0]/10 Pain relieved by [epidural] Current patient activity level [bedrest] No side effects noted. Will d/c catheter in am. Anesthesiology will continue to follow until block resolved at 0027 RPT #:[id number] END OF REPORT [facility] 2020-02-26 14:03:00 [id number] [place], [place] [address] PATIENT NAME: RENÉE CONTEH ADMIT DATE: 02/26/20 ACCOUNT NO: [id number] ROOM NO: G.333 AGE: 34 REPORT TYPE: OPERATIVE REPORT SEX: F ADMITTING PHYSICIAN:Aiyana Locke MD ATTENDING PHYSICIAN:Aiyana Locke MD OPERATION DATE: 02/26/2020 PREOPERATIVE DIAGNOSES: Intrauterine at 35+ weeks, previous section x2, history of a uterine scar window, complicated by anemia, complicated by obesity, and multipara desiring permanent sterilization. POSTOPERATIVE DIAGNOSES: Intrauterine at 35+ weeks, previous section x2, history of a uterine scar window, complicated by anemia, complicated by obesity, multipara desiring permanent sterilization, and pelvic and omental adhesions. PROCEDURE: Bilateral tubal ligation with section. SURGEON: Aiyana Locke MD DRAFTER CIVIL: OLVIN Matthews COMPLICATIONS: None. ESTIMATED BLOOD LOSS: 500 mL. DRAINS: Gordillo to gravity. FINDINGS: This is a 34-year-old white female, 4 para 2, with previous section x2. At her last section, she was noted to have a uterine window. She was being followed closely with ultrasounds, had had steroids x2 doses at 32 weeks. Ultrasound on the day of admission showed high suspicion for a uterine window, approximately 2 cm, with some bulging bag into that area. So, she was sent to labor and delivery for repeat section. She delivered an infant female, 6 pounds 8 ounces. One Nuchal cord easily reduced. A moderate amount of clear fluid noted at delivery. There was indeed a bulging area in the lower uterine segment, approximately 2 cm, very thin, but still intact. Placenta was sent to pathology. Cord gases were sent as well. PROCEDURE IN DETAIL: The patient was taken to the operating room and after adequate induction of a combined epidural spinal anesthetic, she was placed in left lateral tilt supine position with a wedge. She had a Gordillo catheter placed to continuous drainage. Exam under anesthesia was done of her cervix, finding it to be 1 cm, 90% effaced, vertex presentation. She was prepped and draped in the usual sterile fashion after pneumatic compression stockings were placed on her legs and they were placed in a supine position. She was tested with an Allis clamp for adequate analgesia. The incision was made in the lower of the PATIENT NAME: RENÉE CONTEH two uterine scars on her abdomen, which was approximately 2 fingerbreadths above the symphysis pubis. Incision was made with a skin knife and carried down to the level of the fascia with the cut mode of the Bovie. Fascia was then cut in a curved cephalad fashion using the curved Manriquez scissors. There was a large bulge of the omentum between the rectus abdominal muscles, more towards the patient's left. Two Ochsner clamps were placed on superior edge of the fascia. Fascia was bluntly and sharply dissected away using the curved Manriquez scissors, also done the inferior edge of the fascia. Rectus abdominal muscles were carefully dissected and this omental adhesion required 2 Aida clamps with cut between and tied off with 0 Vicryl suture in order to reach the uterine cavity. Upon reaching the uterine cavity, there was noted to be a dense adhesion of the left mid uterine wall to the pelvic sidewall. Enough of the lower uterine segment was visible and the bladder flap was not completely dissected down, however, some of the visceral peritoneum was able to be dissected with the Metzenbaums. A transverse incision was made higher than where the window was, secondary to being too close to the bladder in that area. The transverse incision was made down to the level of the amniotic sac, carried in a curved cephalad fashion using the Prabhakar technique. The amniotic sac was ruptured with Allis and [id number] amount of clear fluid was noted. The infant was delivered, right occiput transverse, nuchal cord was easily reduced. She was suctioned on the sterile field before the clamping of the cord and the infant was delivered to the team awaiting at the bedside. Cord gases were obtained followed by cord blood studies. Placenta was then removed manually, sent to pathology for permanent section. The uterus was exteriorized and was cleansed with wet laps. The uterine incision was closed with an 0 chromic suture in a running and locking fashion. Prior to exteriorizing the uterus, please note that an adhesion of the mid fundal area also had to be clamped, cut, and tied with 0 chromic suture. The right angle of the uterine incision required a separate [id number]. There was some bleeding at the edge of the right visceral peritoneum, which was easily controlled with cautery. Because uterus was able to be exteriorized, a wet lap was placed on the uterine incision and then attention was placed to perform the bilateral tubal ligation. So, attention was placed first to the left tube where a Hammond was used to elevate a portion of the mid tube. It was then tied off with an 0 chromic suture and then the Metzenbaums were used to open up the middle of that elbow and 2 chromic sutures were used to tie off each end in a modified Fly technique. Then, the Metzenbaums were used to remove that segment of the tube, which was sent to pathology for permanent section. The tubal ends were coagulated slightly. Then, the exact same procedure was done on the right, again using the modified Fly technique, and the segment was also sent for permanent section. Uterus was then carefully placed back in intraperitoneal cavity after the posterior cul-de-sac was cleansed of blood fragments. The uterine incision was again inspected where the mid uterine incision for adhesion was, required a 3-0 Vicryl running and locking suture for better hemostasis in that area ,and then the uterine incision itself had adequate hemostasis. Surgicel was placed over where the adhesion had been in the mid fundus and then Interceed was placed over the uterine incision area. Attention was then placed where the omentum was densely adhered to the peritoneum, and this was all dissected away using Kellys and 0 Vicryl suture ties. The omentum was released entirely and allowed to fall back into the intraperitoneal cavity. The peritoneum was then closed with a 2-0 chromic running stitch followed by reapproximation of the rectus abdominal muscles at the same time since they were adhered to the peritoneum. Subfascial layer was hemostatic, was closed with 0 Vicryl from lateral angle to midline, tied in a running fashion from the opposite angle in the same fashion. PATIENT NAME: RENÉE CONTEH Subcutaneous tissue was hemostatic, was reapproximated with a 2-0 plain running stitch, followed by closure of the skin with a 4-0 Monocryl subcuticular stitch. Steri-Strips were applied. The patient will have an abdominal binder. Her urine was clear and she had adequate urine output. Infant went to NICU. The patient tolerated everything well and was taken to the recovery area in stable condition. Dictated By: Aiyana Locke MD WT: OP:RILEY/CHRISSIE/AMOS Conf#: [id number]#: [id number] Authenticated by Aiyana Locke MD On 03/10/2020 11:41:35 AM at 1142 PATIENT NAME: RENÉE CONTEH [facility] 2020-02-26 13:28:00 [facility] ([facility]) OB Disch REPORT#:[id number] REPORT STATUS: Signed DATE:02/26/20 TIME: 1328 PATIENT: RENÉE CONTEH UNIT #: [id number] ROOM/BED: [place] [address] : 84 AGE: 34 SEX: F ATTEND: Aiyana Locke MD ADM AUTHOR: Aiyana Locke MD * ALL edits or amendments must be made on the electronic/computer document * Aiyana Locke 02/26/20 1328: Subjective Subjective Admission EGA (wks/days): 35 weeks EGA at delivery (wks/days): 35 weeks Discharge Summary Discharge Summary Problem List/A P: 1. 35-36 completed weeks of gestation 2. Previous delivery, antepartum 3. History of 2 sections 4. Obesity affecting in third trimester 5. Anemia affecting in third trimester Date of admission: Date of admission: 02/26/20 Admission diagnosis: anemia, GBS status (positive), [id number], previous uterine incision ( w hx of uterine scar window), Obesity Hospital course: spontaneous labor, repeat admit, tubal ligation w/ , epidural anesthesia, spinal anesthesia, nml postop/postpart care Procedures: epidural anesthesia, spinal anesthesia, repeat CS delivery, tubal ligation at CS Baby A: status: live born Gender: female 1 minute: 8 5 minutes: 9 Plan: routine care, discharge today Instructions: routine instr sheet given Diet: regular Activity and restrictions: up ad luana, may shower, pelvic rest, no intercourse for 6 wks Contraception discussed: abstinence for 4-6 weeks Consultation(s): Consultation performed: anesthesia, vehicle technician Discharge to: home Follow up in: 2 weeks William Hale 02/29/20 0830: Subjective Subjective Admission EGA (wks/days): 35 weeks EGA at delivery (wks/days): 35 weeks Status/day: post operative (DAY #3) Patient reports: Patient reports: Yes: normal lochia, pain management effective, tolerating po well, voiding well, voiding without pain, tolerating ambulation, flatus. No: complaints, bowel movement, nausea, vomiting, excessive bleeding, abdominal pain, perineal pain, difficulty nursing (PUMPING), headache, blurred vision. Nursing reports: Nursing reports: No: complaints. Comments: PATIENT IN NICU AND IN ROOM SAID PATIENT IS DOING WELL AND THEY ARE AWARE ABOUT DC TO HOME TODAY. RN MADE AWARE OF DC TO HOME TODAY AND ORDERS. Objective General VS: Vital Signs Date Temp Pulse Resp B/P B/P Mean Pulse Ox FiO2 02/27-02/28 98.3-98.5 94-105 16-18 120-134/58-68 Last Documented: Result Date Time B/P 120/68 02/28 0035 Temp 98.4 02/28 0035 Pulse 105 02/28 0035 Resp 18 02/28 0035 B/P Mean 86.0 02/25 1513 Pulse Ox 97 02/25 1510 Patient Weight Weight (lb): 205 Weight (oz): Weight (kg): 92.986 Physical Exam Breasts: Breasts: normal, filling, non-tender, soft, no erythema Flow: colostrum Nipples: normal, intact Feeding: breast and formula, pumping breasts Cardiac: normal rhythm, no clinically sig murmur, no gallops, no rubs Lungs: clear to auscultation, no rales, no rhonchi Neuro: Exam: alert, oriented x3, normal speech, normal gait, CNII-XII grossly intact , reflexes equal bilat DTR's (lower extr): normal 1-2+ Abdomen: post gravid, soft, no abnormal tenderness, no guarding, no rebound tenderness, normoactive bowel sounds Incision site: well approximated edges, no drainage, no inflammation Uterus: involution appropriate, non-tender Fundus: firm, at the umbilicus, below the umbilicus Lochia: normal Episiotomy or laceration: none Vulva/Perineum: normal CVA tenderness: none Lower extremities: Edema: trace Tejas's sign: negative Calf tenderness: negative Results Results: no new labs, labs reviewed, vital signs stable Discharge Summary Discharge Summary Problem List/A P: 1. Previous delivery, antepartum 2. History of 2 sections 3. Obesity affecting in third trimester 4. Anemia affecting in third trimester 5. 35-36 completed weeks of gestation Free Text A P: AVSS No Complaints Abd Non-tender Fundus Firm Minimal Lochia Incision Healing Well Routine POD 3 from CS DC [facility] Steristrips DC Home F/U 2 wks See Orders Date of admission: Date of admission: 02/26/20 Admission diagnosis: anemia, GBS status, [id number], previous uterine incision, Obesity Hospital course: spontaneous labor, repeat admit, tubal ligation w/ , epidural anesthesia, spinal anesthesia, nml postop/postpart care Procedures: epidural anesthesia, spinal anesthesia, repeat CS delivery, tubal ligation at CS Baby A: status: live born Gender: female 1 minute: 8 5 minutes: 9 Nursing data: The data set between the solid lines has been imported from nursing documentation. Any exceptions have been noted below under Provider comments. EGA (weeks/days): 35.5 EGA at admit (weeks): Delivery date infant A: 02/26/20 Delivery time infant A: 1217 Birthweight (gm) A: 2970 Feeding preference: Gender A: Female 1 minute A: 8 5 minutes A: 9 10 minutes infant A: Provider comments on imported nursing data: [] Plan: routine care, discharge today Instructions: routine instr sheet given, instr and warnings rev'd, specific instr as noted Diet: regular Activity and restrictions: up ad luana, may shower, pelvic rest, no intercourse for 6 wks, no driving (FOR TWO WEEKS) Immunizations given: Tdap (OFFER), flu (OFFER) Contraception discussed: abstinence for 4-6 weeks, will discuss at PP visit Discharge meds: Continue taking these medications: FAMOTIDINE (PEPCID) 20 MG TAB 20 MILLIGRAM ORAL DAILY. PNV/FE FUM/FA ( MULTIVITAMIN) 28 MG IRON-800 MCG TAB 1 TABLET ORAL DAILY. Start taking the following new medications: FERROUS SULFATE (FEOSOL) 325 MG TAB 325 MILLIGRAM ORAL TWICE DAILY. Qty = 60 Refills = 1 HYDROcodone/APAP (NORCO 5/325) 1 TAB TAB 1 TABLET ORAL EVERY 6 HOURS NEEDED. as needed for PAIN SCALE (4 - 6) Qty = 30 No Refills IBUPROFEN (MOTRIN) 800 MG TAB 800 MILLIGRAM ORAL EVERY 8 HR NEEDED. as needed for PAIN SCALE (1 - 5) Qty = 30 Refills = 1 DOCUSATE SODIUM (COLACE) 100 MG CAP 100 MILLIGRAM ORAL TWICE DAILY. as needed for CONSTIPATION Qty = 30 Refills = 1 Prescriptions: e-prescribe Rx drug database reviewed: yes Consultation(s): Consultation performed: anesthesia, configuration management consultant, vehicle technician, research laboratory technician, line construction superintendent Discharge condition: stable Discharge to: home Follow up in: 2 weeks Discharge diagnosis: previous uterine incision, LABOR Discharge management: greater than 30 mins Time spent: >50% spent on counseling/coordination of care: no Additional Notes: WILLIAM HALE MD PA at 0834 RPT #:[id number] END OF REPORT [facility] 2020-02-26 13:28:00 [facility] ([facility]) OB Disch REPORT#:[id number] REPORT STATUS: Signed DATE:02/26/20 TIME: 132 PATIENT: RENÉE CONTEH UNIT #: [id number] ROOM/BED: [place] [address] : 84 AGE: 34 SEX: F ATTEND: Aiyana Locke MD ADM AUTHOR: Aiyana Locke MD * ALL edits or amendments must be made on the electronic/computer document * Aiyana Locke 02/26/20 1328: Subjective Subjective Admission EGA (wks/days): 35 weeks EGA at delivery (wks/days): 35 weeks Discharge Summary Discharge Summary Problem List/A P: 1. 35-36 completed weeks of gestation 2. Previous delivery, antepartum 3. History of 2 sections 4. Obesity affecting in third trimester 5. Anemia affecting in third trimester Date of admission: Date of admission: 02/26/20 Admission diagnosis: anemia, GBS status (positive), [id number], previous uterine incision ( w hx of uterine scar window), Obesity Hospital course: spontaneous labor, repeat admit, tubal ligation w/ , epidural anesthesia, spinal anesthesia, nml postop/postpart care Procedures: epidural anesthesia, spinal anesthesia, repeat CS delivery, tubal ligation at CS Baby A: status: live born Gender: female 1 minute: 8 5 minutes: 9 Plan: routine care, discharge today Instructions: routine instr sheet given Diet: regular Activity and restrictions: up ad luana, may shower, pelvic rest, no intercourse for 6 wks Contraception discussed: abstinence for 4-6 weeks Consultation(s): Consultation performed: anesthesia, vehicle technician Discharge to: home Follow up in: 2 weeks William Hale 02/29/20 0830: Subjective Subjective Admission EGA (wks/days): 35 weeks EGA at delivery (wks/days): 35 weeks Status/day: post operative (DAY #3) Patient reports: Patient reports: Yes: normal lochia, pain management effective, tolerating po well, voiding well, voiding without pain, tolerating ambulation, flatus. No: complaints, bowel movement, nausea, vomiting, excessive bleeding, abdominal pain, perineal pain, difficulty nursing (PUMPING), headache, blurred vision. Nursing reports: Nursing reports: No: complaints. Comments: PATIENT IN NICU AND IN ROOM SAID PATIENT IS DOING WELL AND THEY ARE AWARE ABOUT DC TO HOME TODAY. RN MADE AWARE OF DC TO HOME TODAY AND ORDERS. Objective General VS: Vital Signs Date Temp Pulse Resp B/P B/P Mean Pulse Ox FiO2 02/27-02/28 98.3-98.5 94-105 16-18 120-134/58-68 Last Documented: Result Date Time B/P 120/68 02/28 0035 Temp 98.4 02/28 0035 Pulse 105 02/28 0035 Resp 18 02/28 0035 B/P Mean 86.0 02/25 1513 Pulse Ox 97 02/25 1510 Patient Weight Weight (lb): 205 Weight (oz): Weight (kg): 92.986 Physical Exam Breasts: Breasts: normal, filling, non-tender, soft, no erythema Flow: colostrum Nipples: normal, intact Feeding: breast and formula, pumping breasts Cardiac: normal rhythm, no clinically sig murmur, no gallops, no rubs Lungs: clear to auscultation, no rales, no rhonchi Neuro: Exam: alert, oriented x3, normal speech, normal gait, CNII-XII grossly intact , reflexes equal bilat DTR's (lower extr): normal 1-2+ Abdomen: post gravid, soft, no abnormal tenderness, no guarding, no rebound tenderness, normoactive bowel sounds Incision site: well approximated edges, no drainage, no inflammation Uterus: involution appropriate, non-tender Fundus: firm, at the umbilicus, below the umbilicus Lochia: normal Episiotomy or laceration: none Vulva/Perineum: normal CVA tenderness: none Lower extremities: Edema: trace Tejas's sign: negative Calf tenderness: negative Results Results: no new labs, labs reviewed, vital signs stable Discharge Summary Discharge Summary Problem List/A P: 1. Previous delivery, antepartum 2. History of 2 sections 3. Obesity affecting in third trimester 4. Anemia affecting in third trimester 5. 35-36 completed weeks of gestation Free Text A P: AVSS No Complaints Abd Non-tender Fundus Firm Minimal Lochia Incision Healing Well Routine POD 3 from CS DC [place] [facility] Steristrips DC Home F/U 2 wks See Orders Date of admission: Date of admission: 02/26/20 Admission diagnosis: anemia, GBS status, [id number], previous uterine incision, Obesity Hospital course: spontaneous labor, repeat admit, tubal ligation w/ , epidural anesthesia, spinal anesthesia, nml postop/postpart care Procedures: epidural anesthesia, spinal anesthesia, repeat CS delivery, tubal ligation at CS Baby A: status: live born Gender: female 1 minute: 8 5 minutes: 9 Nursing data: The data set between the solid lines has been imported from nursing documentation. Any exceptions have been noted below under Provider comments. EGA (weeks/days): 35.5 EGA at admit (weeks): Delivery date A: 02/26/20 Delivery time A: 1217 Birthweight (gm) A: 2970 Feeding preference: Gender A: Female 1 minute A: 8 5 minutes infant A: 9 10 minutes A: Provider comments on imported nursing data: [] Plan: routine care, discharge today Instructions: routine instr sheet given, instr and warnings rev'd, specific instr as noted Diet: regular Activity and restrictions: up ad luana, may shower, pelvic rest, no intercourse for 6 wks, no driving (FOR TWO WEEKS) Immunizations given: Tdap (OFFER), flu (OFFER) Contraception discussed: abstinence for 4-6 weeks, will discuss at PP visit Discharge meds: Continue taking these medications: FAMOTIDINE (PEPCID) 20 MG TAB 20 MILLIGRAM ORAL DAILY. PNV/FE FUM/FA ( MULTIVITAMIN) 28 MG IRON-800 MCG TAB 1 TABLET ORAL DAILY. Start taking the following new medications: FERROUS SULFATE (FEOSOL) 325 MG TAB 325 MILLIGRAM ORAL TWICE DAILY. Qty = 60 Refills = 1 HYDROcodone/APAP (NORCO 5/325) 1 TAB TAB 1 TABLET ORAL EVERY 6 HOURS NEEDED. as needed for PAIN SCALE (4 - 6) Qty = 30 No Refills IBUPROFEN (MOTRIN) 800 MG TAB 800 MILLIGRAM ORAL EVERY 8 HR NEEDED. as needed for PAIN SCALE (1 - 5) Qty = 30 Refills = 1 DOCUSATE SODIUM (COLACE) 100 MG CAP 100 MILLIGRAM ORAL TWICE DAILY. as needed for CONSTIPATION Qty = 30 Refills = 1 Prescriptions: e-prescribe Rx drug database reviewed: yes Consultation(s): Consultation performed: anesthesia, configuration management consultant, vehicle technician, research laboratory technician, line construction superintendent Discharge condition: stable Discharge to: home Follow up in: 2 weeks Discharge diagnosis: previous uterine incision, LABOR Discharge management: greater than 30 mins Time spent: >50% spent on counseling/coordination of care: no Additional Notes: WILLIAM HALE MD PA at 0834 at 1452 [facility] #:[id number] END OF REPORT [facility] 2020-02-26 11:50:00 [facility] ([facility]) OB Delivery Note REPORT#:[id number] REPORT STATUS: Signed DATE:02/26/20 TIME: 1150 PATIENT: RENÉE CONTEH UNIT #: [id number] ROOM/BED: [place] [id number] : 84 AGE: 34 SEX: F ATTEND: Aiyana Locke MD ADM AUTHOR: Aiyana Locke MD * ALL edits or amendments must be made on the electronic/computer document * OB Delivery Pre-delivery GBS status: GBS status: positive Prophylaxis administered: none Meds prior to delivery: Ancef 2 gm evaluation at delivery: team Admission EGA (wks/days): 35 weeks EGA at delivery (wks/days): 35 weeks Steroids Prior to Delivery Steroids prior to delivery: yes had steroids x 2 at 32 weeks Baby A Information Baby A information Delivery date: 02/26/20 Delivery time: 1217 status: live born Wt of baby (grams): 2970 Wt of baby (lbs/oz): 6# 8oz Gender: female 1 minute: 8 5 minutes: 9 Presentation: vertex ABG details Baby A Cord blood gases: collected Nuchal cord Baby A Nuchal cord: yes (loose and reduced) (x 1 ) Delivery section Primary indication: elective repeat , hx of uterine window Priority: urgent Antibiotic prior to incision: 1 dose )(SCDs applied activated: Yes Uterine incision: low transverse Uterine scar: incidental window (but intact w bulging bow) Consent: indication discussed, questions answered, pt consent to op delivery Mother's condition: mother stable 's condition: infant to NICU Op/Inv Proc Note - Brief )(Start date: 02/26/2020 )(Start time: 1205 )( Procedure(s) performed: repeat low transverse c/s, bilateral tubal ligation )( Primary Surgeon: Dr Aiyana Locke )( Scrubbing Machine Operator(s): Balaji BAH Anesthesiologist: Dr Hill )( Pre-procedure diagnosis: IUP @ 35+ weeks; Prev Csection x 2 w hx of Uterine scar window; anemia preop, obesity; Multipara Desiring permanent Sterilization )( Post-procedure diagnosis: same plus pelvic and omental adhesions )( Technique/Procedure: see dictated note Anesthesia: combined spinal/epidural )( Estimated blood loss (ml): 500 )( Specimen removed/altered: none )( Complications: none Drain(s): [place] to [place] Tube(s): none Implant(s): none Urine output: 150 cc's clear )( Finding(s): see dictated note Condition: stable Dictation number: [id number] Blood Loss/Details Blood loss at delivery: <1000 ml EBL at delivery (ml's): 500 at 1403 RPT #:[id number] END OF REPORT [facility] 2020-02-26 11:43:00 [facility] ([facility]) OB Admission / H P REPORT#:[id number] REPORT STATUS: Signed DATE:02/26/20 TIME: 1143 PATIENT: RENÉE CONTEH UNIT #: [id number] ROOM/BED: [place] [id number] : 84 AGE: 34 SEX: F ATTEND: Aiyana Locke MD ADM AUTHOR: Aiyana Locke MD * ALL edits or amendments must be made on the electronic/computer document * OB Admission H P Hx Chief complaint: scheduled , uterine contractions HPI: 34 yo WF previous section x 2; last csection w window so pt has been followed carefully w USGs and NSTs; had steroids at 32 weeks in case of need for early delivery; USG today w Dr Sorto showed high suspicion for window of Csection scar w bulging amniotic sac in area pt reports good FM; intermittent contractions as well; no vaginal bleeding history: : 4 Term: 2 : 0 Abortus: 1 Living children: 2 Complications (prev preg): window of section scar Previous : unknown uterine incision Current : LMP: 06/21/19 EDC: 03/29/20 Admission EGA (wks/days): 35 weeks EGA based on: LMP, ultrasound, 1st trimester Steroids prior to delivery: yes had steroids x 2 at 32 weeks Conditions of : GBS status (positive ), previous uterine incision (x 2) Labs: Blood type: O Rh: positive Rubella: immune Hepatitis B: negative HIV: negative STD: negative Syphilis: currently negative GBS: positive Procedures: biophysical profile, echo, ultrasound, non stress test Genetic testing: NIPT low risk FEMALE Past medical history: denies PMH Past surgical history: (x 2) Social history: single, no alcohol use, no tobacco use, no drug use Family history Relation not specified for: FHx: colon cancer Allergies Coded Allergies: No Known Allergies (02/04/20) Review of Systems Respiratory: Denies: productive cough (sputum), SOB, wheezing. Cardiovascular: Denies: chest pain, palpitations. GI: Denies: diarrhea, nausea, vomiting. : Reports: pelvic pain, , previous pregnancies. Denies: dysuria, urgency. Neuro: Denies: headache, vision change. Objective General VS: Last Documented: Result Date Time B/P Mean 96.0 02/25 1006 B/P 137/74 02/25 1006 Pulse 104 02/25 1006 Vital Signs Date Temp Pulse Resp B/P B/P Mean Pulse Ox FiO2 02/25 104 137/ 96.0 Patient Weight Weight (lb): 205 Weight (oz): Weight (kg): 92.986 Physical Exam HEENT: normocephalic w/o injury Neuro: Exam: alert, oriented x3, normal speech, CNII-XII grossly intact Abdomen: gravid, soft, no abnormal tenderness, no guarding, no rebound tenderness Uterine activity: Monitor: toco Intensity: mild Resting tone: relaxed Cervical/ exam: Dilatation (cm): 1 Effacement (%): 90 Suspected macrosomia: No Suspected > 5000 grams: No station: - 4 presentation: cephalic Norton Score Norton Score Response Value Dilation: 1-2 cm (1) 1 Effacement: 80-100% (3) 3 Station: -3 (0) 0 Position: mid (1) 1 Consistency: soft (2) 2 Total 7 Membranes: Membranes: Intact Lower extremities: Edema: trace Tejas's sign: negative Calf tenderness: negative Baby A: Baby A baseline: 135 bpm Baby A variability: moderate 6-25 bpm Baby A accelerations: 15 X 15 Baby A decelerations: none Baby A FHR category: category 1 Result Findings/Data: Laboratory Tests: 02/25 02/25 02/25 1254 1250 1040 Blood Gas Cord Blood pH (7.18 - 7.38) 7.25 Cord Blood PCO2 (32 - 66 mmHg) 49 Cord Blood PO2 (6 - 30 mmHg) 18 Cord Blood HCO3 (17 - 27 mmol/L) 21 Cord Base Excess (-8.0 - 0.0 mmol/L) -6.0 Cord O2 Saturation (72 - 77 %) 19 L Cord VBG pH (7.25 - 7.45) 7.36 Cord VBG pCO2 (27 - 49 mmHg) 32 Cord VBG pO2 (17 - 41 mmHg) 30 Cord VBG HCO3 (12 - 28 MMOL/L) 18.2 Cord VBG Base Excess (-8.0 - 0.00 mmol/L) -7.0 Cord VBG O2 Sat (%) 56 Serology SARS-CoV-2 Ag (Rapid) (Negative) Negative 02/25 1020 Hematology WBC (4.5 - 11.0 x10 3/uL) 11.74 H RBC (3.54 - 5.02 x10 6/uL) 3.15 L Hgb (11.0 - 15.0 g/dL) 10.1 L Hct (33.0 - 45.0 %) 30.1 L MCV (81.0 - 99.0 fL) 95.6 MCH (27.0 - 33.0 pg) 32.1 MCHC (33.0 - 37.0 g/dL) 33.6 RDW (11.5 - 14.5 %) 14.3 Plt Count (150 - 400 x10 3/uL) 235 MPV (7.0 - 9.0 fL) 10.2 H Neut % (Auto) (56.0 - 77.0 %) 70.5 Lymph % (Auto) (14.0 - 32.0 %) 17.9 [place] % (Auto) (4.8 - 9.0 %) 6.9 Eos % (Auto) (0.3 - 3.7 %) 0.9 Baso % (Auto) (0.0 - 2.0 %) 0.5 Neut # (Auto) (2.0 - 7.6 x10 3/uL) 8.27 H Lymph # (Auto) (1.0 - 3.8 x10 3/uL) 2.10 [place] # (Auto) (0.1 - 0.8 x10 3/uL) 0.81 H Eos # (Auto) (0.0 - 0.2 x10 3/uL) 0.11 Baso # (Auto) (0.0 - 0.2 x10 3/uL) 0.06 Abs Immat Gran (auto) (0.00 - 0.03 x10 3/uL) 0.39 H Add Manual Diff NO Immature Gran % (0.0 - 2.0 %) 3.3 H Nucleated RBC % (0 - 0 %) 0.0 Nucleated RBCs # (Man) (0.0 - 0.1 x10 3/uL) 0.00 Serology Hep Bs Antigen (NonReactive INDEX) NON REACTIVE Diagnosis, Assessment Plan Diagnosis, Assessment Plan Problem List/A P: 1. 35-36 completed weeks of gestation 2. Previous delivery, antepartum 3. History of 2 sections 4. Obesity affecting in third trimester 5. Anemia affecting in third trimester Free Text A P: USG on 02/26/20 suspicious for window of section scar Assessment/Impression: labor, previous C/S, in labor, reassuring status, membranes intact, normal FHR pattern, status post betamethasone, reactive NST, Suspected Uterine scar window Plan: admit to inpatient, , delivery, surveillance Plan discussed with: patient, spouse/partner at 1323 RPT #:[id number] END OF REPORT [facility] 2020-02-26 11:03:00 [facility] ([facility]) Pain Management Consult Note REPORT#:[id number] REPORT STATUS: Signed DATE:02/26/20 TIME: 1103 PATIENT: RENÉE CONTEH UNIT #: [id number] ROOM/BED: [place] [id number] : 84 AGE: 34 SEX: F ATTEND: Aiyana Locke MD ADM AUTHOR: Ivan Hill MD * ALL edits or amendments must be made on the electronic/computer document * History of Present Illness Primary Care Physician: Chucky History Past History Allergies: Coded Allergies: No Known Allergies (02/04/20) Objective Physical Exam VS/I O: Patient Weight Weight (lb): 205 Weight (oz): Weight (kg): 92.986 Diagnosis, Assessment Plan Free text A P: Consulted by [Chucky] for post-op pain management on this patient scheduled for [C/S]. I have discussed with the patient the risks, benefits, and options and he/she wishes to proceed with the planned anesthetic. ([x]) A Combined Spinal Epidural was performed; the spinal block for the intra-operative anesthetic and the epidural catheter placed for post-op pain management. The Anesthesiology department will follow. at 1104 RPT #:[id number] END OF REPORT [facility]
--- NOTE | 2024-04-29 14:12 | EDPHYS ---
Physician Documentation [facility] Name: Ale Harrington Age: 39 yrs Sex: Female : 1985 Arrival Date: 04/29/2024 Time: 12:45 Bed 9 Private MD: ED Physician Ankush Nails HPI: 04/29 14:10 This 39 yrs old Female presents to ER via Ambulatory with complaints of Ear ec2 Pain. 14:10 Patient arrives today for evaluation of right ear pain. Patient reports recent ec2 swimming, does clean her ears with Q-tips. No fevers or chills, no nausea or vomiting.. 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 - Infectious Disease History:: Denies. - Social history:: Smoking status: Patient reports the use of cigarette tobacco products, smokes one-half pack cigarettes per day. ROS: 14:10 Constitutional: as per hpi ec2 Exam: 14:10 Constitutional: GEN: NAD Head: atraumatic Eyes: EOMI Ears: Right ear with otitis ec2 externa CV: regular rate LUNGS: no respiratory distress ABD: non-distended SKIN: no evidence of rashes MSK: no evidence of trauma Vital Signs: 13:06 BP 124 / 75; Pulse 68; Resp 16; Temp 98; Pulse Ox 99% ; Weight 79.38 kg; Height 5 ft. 8 db in. ; 14:17 BP 126 / 78; Pulse 69; Resp 16; Temp 98.1; Pulse Ox 100% ; me1 13:06 Body Mass Index 26.61 (79.38 kg, 172.72 cm) db MDM: 13:24 Patient medically screened. ec2 14:10 Data reviewed: vital signs, nurses notes. ED course: Patient arrives today for right ec2 ear pain. Examination shows right otitis externa. Will start the patient on antibiotics and have her follow-up PCP. Return precautions given. Instructed in [id number]-[id number] medications . Administered Medications: No medications were administered Disposition Summary: 04/29/24 14:11 Discharge Ordered Notes: Location: Home ec2 Condition: Stable ec2 Diagnosis - Other otitis externa, right ear ec2 Followup: ec2 - With: Private Physician - When: - Reason: Re-evaluation by your physician Discharge Instructions: - Discharge Summary Sheet ec2 - Otitis Externa, [id number] ec2 Forms: - Medication Reconciliation Form ec2 - Antibiotic Education ec2 - Prescription Opioid Use ec2 - Patient Portal Instructions ec2 - Leadership Thank You Letter ec2 Prescriptions: - ofloxacin 0.3 % Otic drops - instill 10 drop OTIC route every 24 hours for 7 days; 1 unit; Refills: 0, ec2 Product Selection Permitted Signatures: Giana Cai RN RN db Ankush Nails MD MD ec2
--- NOTE | 2024-04-29 14:12 | ER ---
Nurse's Notes [facility] Name: Ale Harrington Age: 39 yrs Sex: Female : 1985 Arrival Date: 04/29/2024 Time: 12:45 Bed 9 Private MD: Diagnosis: Other otitis externa, right ear Presentation: 04/29 13:06 Chief complaint: Patient states: RIGHT EAR PAIN GOING ON X 1 WEEK. SEVERE PAIN STARTED me1 LAST NIGHT. PT STARTED POURING VINEGAR INTO EAR LAST NIGHT A HOME REMEDY WITH NO RELIEF. 13:06 Coronavirus screen: Client denies travel out of the [place] in the last 14 days. At this db time, the client does not indicate any symptoms associated with coronavirus-19. Ebola Screen: Patient negative for fever greater than or equal to 101.5 degrees Fahrenheit, and additional compatible Ebola Virus Disease symptoms Patient denies exposure to infectious person. Patient denies travel to an Ebola-affected area in the 21 days before illness onset. No symptoms or risks identified at this time. Initial Sepsis Screen: Does the patient meet any 2 criteria? No. Patient's initial sepsis screen is negative. Does the patient have a suspected source of infection? No. Patient's initial sepsis screen is negative. Risk Assessment: Do you want to hurt yourself or someone else? Patient reports no desire to harm self or others. Onset of symptoms was April 29, 2024. 13:06 Method Of Arrival: Ambulatory db 13:06 Acuity: BHUPENDRA 4 db Triage Assessment: 13:08 General: Appears in no apparent distress. comfortable, Behavior is calm, cooperative. db Pain: Complains of pain in right ear. EENT:. Neuro: Level of Consciousness is awake, alert, obeys commands, Oriented to person, place, time, situation. Respiratory: Airway is patent Respiratory effort is even, unlabored, Respiratory pattern is regular, symmetrical. 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 - Infectious Disease History:: Denies. - Social history:: Smoking status: Patient reports the use of cigarette tobacco products, smokes one-half pack cigarettes per day. Screenin:13 [facility] ED Fall Risk Assessment (Adult) History of falling in the last 3 months, me1 including since admission No falls in past 3 months (0 pts) Confusion or Disorientation No (0 pts) Intoxicated or Sedated No (0 pts) Impaired Gait No (0 pts) Mobility Assist Device Used No (0 pt) Altered Elimination No (0 pt) Score/Fall Risk Level 0 - 2 = Low Risk Maintained a safe environment, Provided non-skid footwear, Hourly rounding (assess needs \T\ fall precautionary measures) done. Abuse screen: Denies threats or abuse. Nutritional screening: No deficits noted. Tuberculosis screening: No symptoms or risk factors identified. Assessment: 13:13 General: Appears uncomfortable, well groomed, well developed, well nourished, Behavior me1 is calm, cooperative, appropriate for age, Reports RIGHT EAR PAIN GOING ON X 1 WEEK. SEVERE PAIN STARTED LAST NIGHT. PT STARTED POURING VINEGAR INTO EAR LAST NIGHT A HOME REMEDY WITH NO RELIEF. Pain: Complains of pain in right ear Pain radiates to right ear, right congregational and right jaw Pain currently is 8 out of 10 on a pain scale. Quality of pain is described as sharp, throbbing, Pain began a week ago. Worse since yesterday Is continuous. Neuro: Level of Consciousness is awake, alert, obeys commands, Oriented to person, place, time, situation, Appropriate for age. Cardiovascular: Patient's skin is warm and dry. Respiratory: Airway is patent Respiratory effort is even, unlabored, Respiratory pattern is regular, symmetrical. GI: No signs and/or symptoms were reported involving the gastrointestinal system. : No signs and/or symptoms were reported regarding the genitourinary system. EENT: Reports pain in right ear. Derm: Skin is intact, is healthy with good turgor, Skin is pink, warm \T\ dry. Musculoskeletal: No signs and/or symptoms reported regarding the musculoskeletal system. Vital Signs: 13:06 BP 124 / 75; Pulse 68; Resp 16; Temp 98; Pulse Ox 99% ; Weight 79.38 kg; Height 5 ft. 8 db in. ; 14:17 BP 126 / 78; Pulse 69; Resp 16; Temp 98.1; Pulse Ox 100% ; me1 13:06 Body Mass Index 26.61 (79.38 kg, 172.72 cm) db ED Course: 12:47 Patient arrived in ED. im 12:51 Ankush Nails MD is Attending Physician. ec2 13:08 Triage completed. db 13:09 Arm band placed on Patient placed. db 13:10 Avelina Luna, RN is Primary Nurse. me1 13:13 Patient has correct armband on for positive identification. Bed in low position. Call me1 light in reach. Side rails up X2. Provided Education on: POC. Verbalized understanding.. 13:13 No provider procedures requiring assistance completed. Patient did not have IV access me1 during this emergency room visit. Administered Medications: No medications were administered Medication: 13:13 VIS not applicable for this client. me1 Outcome: 14:11 Discharge ordered by . ec2 14:18 Discharged to home ambulatory, me1 14:18 Condition: stable 14:18 Discharge instructions given to patient, Instructed on discharge instructions, follow up and referral plans. medication usage, Demonstrated understanding of instructions, follow-up care, medications, Prescriptions given X 1, 14:19 Patient left the ED. me1 Signatures: Giana Cai, RN RN Kate Mary Avelina Luna, RN RN me1 Ankush Nails MD MD ec2 Corrections: (The following items were deleted from the chart) 13:08 13:06 Chief complaint: Patient states: RIGHT EAR PAIN db db 13:10 13:06 Chief complaint: Patient states: RIGHT EAR PAIN GOING ON X 1 WEEK. SEVERE PAIN me1 STARTED LAST NIGHT. PT STARTED POURING VINEGAR INTO EAR LAST NIGHT A HOME REMEDY WITH NO RELIEF. db
[2024-04-29 14:35] VITALS: BP 126/78; TEMP 98.1; O2SAT 100
== END 2024-04-29 14:19 | disposition home or self-care (01) ==
LOC: ER 12:45
DX: H60.8X1 Other otitis externa, right ear (principal)
CPT/HCPCS: 99283